=== PATIENT | male | born 1935 | race Caucasian/White ===

== ENCOUNTER 2018-01-01 18:41 | Inpatient (IN) | payer MEDICARE, OTHER ==
[~2018-01-01] VITALS: Ht 182.9 cm; Wt 73.3 kg
[~2018-01-01 18:41] MED LIST: ASPI-274 PO; ATOR20TA22 PO; AZIT-18 PO; CARB-91 PO; CEF300 PO; FLU20 PO; GLUC100026 PO; HYDR-389 PO; IBU200 PO; IBUP100T54 PO; METO25TA23 PO; MOX400 PO; MULT1CAP41 PO; OMEP-137 PO; VANC250C11 PO; WARF10TA34 PO; WARF5TAB23 PO; WARF7.5T13 PO; WARF7.5T26 PO
--- NOTE | 2018-01-01 18:51 | ER Report ---
History and Physical Time Seen By MD: 18:51 HPI/ROS CHIEF COMPLAINT: Vomiting HISTORY OF PRESENT ILLNESS: 82-year-old male patient presents to emergency room with complaint of vomiting. Patient's unable to keep anything down since Tuesday. He states that he did eat some Jell-O this afternoon prior to coming over. Is also had some ice chips which they'll keep down. I did start an IV on him and have given him a liter bolus of fluid 2. They state they noted that he had low SPO2 this afternoon, 78%. They decided to send him to the emergency room for further evaluation. Patient does live in a long-term in [facility]. Patient denies having any fevers, chills. Denies having any diarrhea. He has not taken any medication for this. He denies having any shortness of breath. He denies having any cough. Patient does have a history of MS. REVIEW OF SYSTEMS: Respiratory: As noted above Cardiovascular: No chest pain, no palpitations. Gastrointestinal: As noted above Musculoskeletal: No back pain. Allergies: Coded Allergies: piperacillin (Verified Allergy, Severe, rash with blisters on back, stomach, and arms, 01/01/18) tazobactam (Verified Allergy, Severe, rash with blisters on back, stomach , and arms, 01/01/18) metronidazole (Unverified Allergy, Intermediate, RASH, 01/01/18) Itching, patient turns bright red all over body lactase (Unverified Allergy, Mild, DIARRHEA, 01/01/18) hydrocodone (Verified Allergy, Unknown, 01/01/18) oxycodone (Verified Allergy, Unknown, 01/01/18) milk (Verified Adverse Reaction, Intermediate, DIARRHEA, 01/01/18) Home Meds Active Scripts Vancomycin Hcl (VANCOCIN HCL) 250 Mg/5 Ml Soln, 500 MG PO Q6H@03,09,15,21, #1 TAB Prov:JULIA PATEL DO 01/27/15 Reported Medications Carbamazepine (CARBAMAZEPINE) 200 Mg Cpmp.12hr, 200 MG PO BID 01/01/18 Lactobacillus Acidophilus (ACIDOPHILUS) 1 Each Capsule, 1 EACH PO QDAY, CAPSULE 01/01/18 Metoprolol Succinate (METOPROLOL SUCCINATE) 25 Mg Tab.er.24h, 1 TAB PO DAILY, # 30 01/13/15 Carbamazepine (CARBAMAZEPINE) 200 Mg Tablet, 200 MG PO BID 06/25/14 Multivitamins W-Minerals (Multivitamin) 1 Cap Capsule, 1 CAP PO DAILY 05/17/07 Atorvastatin Calcium (Lipitor) 20 Mg Tablet, 10 MG PO QHS, #0 0 Refills 05/17/07 Fluoxetine Hcl (Prozac) 20 Mg Cap, 40 MG PO DAILY 05/17/07 Past Medical/Surgical History Patient has a past medical history of MS, A. fib, hypertension, hyperlipidemia, reflux, osteomyelitis, left hip fracture, atrial fibrillation. Patient has a surgical history of inguinal hernia repair 2, Achilles tendon rupture repair, left rotator cuff, tonsillectomy. Reviewed Nurses Notes: Yes Hx Smoking: No Smoking Status: Never Smoker Exposure to Second Hand Smoke?: No Hx Substance Use Disorder: No Hx Alcohol Use: No Constitutional Vital Sign - Last 24 Hours 01/01/18 01/01/18 01/01/18 01/01/18 18:49 18:51 18:56 19:10 Temp 98.5 Pulse 95 91 Resp 18 B/P (MAP) 132/73 (92) 132/73 Pulse Ox 77 93 O2 Delivery Room Air O2 Flow Rate 3.5 01/01/18 01/01/18 01/01/18 01/01/18 19:11 19:26 19:56 20:11 Pulse 84 85 86 86 Pulse Ox 92 94 96 94 01/01/18 01/01/18 01/01/18 20:16 20:31 20:46 Pulse 89 84 87 Pulse Ox 94 94 94 Physical Exam General Appearance: The patient is alert, has no immediate need for airway protection and no current signs of toxicity. Patient had an SPO2 of 77% on admission to the emergency room. Respiratory: Chest is non tender, lungs are diminished to auscultation. Cardiac: regular rate and rhythm Gastrointestinal: Abdomen is soft and non tender, no masses, bowel sounds normal. Musculoskeletal: Neck: Neck is supple and non tender. Extremities have full range of motion and are non tender. Skin: No rashes or lesions. DIFFERENTIAL DIAGNOSIS: After history and physical exam differential diagnosis was considered for shortness of breath including but not limited to pulmonary infectious process, COPD, asthma, pulmonary embolus and congestive heart failure. Included differential is fluid overload, small bowel obstruction. Medical Decision Making Data Points Result Diagram: 01/01/18191401/01/181914 Laboratory Hematology Test 01/01/18 19:15 01/01/18 20:35 Red Blood Count 4.87 M/uL (4.00-5.60) Mean Corpuscular Volume 98.2 fL (80.0-96.0) Mean Corpuscular Hemoglobin 32.7 pg (26.0-33.0) Mean Corpuscular Hemoglobin Concent 33.3 g/dL (32.0-36.0) Red Cell Distribution Width 13.9 % (11.5-14.5) Mean Platelet Volume 7.5 fL (7.2-11.1) Neutrophils (%) (Auto) 93.3 % (39.4-72.5) Lymphocytes (%) (Auto) 3.4 % (17.6-49.6) Monocytes (%) (Auto) 2.9 % (4.1-12.4) Eosinophils (%) (Auto) 0.1 % (0.4-6.7) Basophils (%) (Auto) 0.3 % (0.3-1.4) Nucleated RBC Relative Count (auto) 0.0 /100WBC Neutrophils # (Auto) 19.1 K/uL (2.0-7.4) Lymphocytes # (Auto) 0.7 K/uL (1.3-3.6) Monocytes # (Auto) 0.6 K/uL (0.3-1.0) Eosinophils # (Auto) 0.0 K/uL (0.0-0.5) Basophils # (Auto) 0.1 K/uL (0.0-0.1) Nucleated RBC Absolute Count (auto) 0.01 K/uL Peripheral Blood Smear Yes Y/N Prothrombin Time 52.5 seconds (12.0-14.4) Prothromb Time International Ratio 5.47 D-Dimer Quantitative (PE/DVT) < 0.27 ug/ml (0-0.50) Sodium Level 147 mmol/L (137-145) Potassium Level 4.4 mmol/L (3.5-5.0) Chloride Level 103 mmol/L (98-107) Carbon Dioxide Level 30 mmol/L (22-30) Blood Urea Nitrogen 36 mg/dl (9-21) Creatinine 1.20 mg/dl (0.66-1.25) Glomerular Filtration Rate Calc 58.0 Random Glucose 120 mg/dl (75-110) Calcium Level 10.2 mg/dl (8.4-10.2) Total Bilirubin 0.6 mg/dl (0.2-1.3) Aspartate Amino Transf (AST/SGOT) 25 U/L (0-35) Alanine Aminotransferase (ALT/SGPT) 39 U/L (0-56) Alkaline Phosphatase 108 U/L (0-126) Troponin I < 0.012 ng/ml B-Type Natriuretic Peptide 65 pg/ml (0-100) Total Protein 8.3 gm/dl (6.3-8.2) Albumin 4.2 g/dl (3.5-5.0) Influenza Virus Type A (PCR) Negative (NEGATIVE) Influenza Virus Type B (PCR) Negative (NEGATIVE) Lactate 1.2 mmol/L (0.7-2.1) Chemistry Test 01/01/18 19:15 01/01/18 20:35 White Blood Count 20.4 k/uL (4.5-11.0) Red Blood Count 4.87 M/uL (4.00-5.60) Hemoglobin 15.9 g/dL (14.0-18.0) Hematocrit 47.8 % (42.0-52.0) Mean Corpuscular Volume 98.2 fL (80.0-96.0) Mean Corpuscular Hemoglobin 32.7 pg (26.0-33.0) Mean Corpuscular Hemoglobin Concent 33.3 g/dL (32.0-36.0) Red Cell Distribution Width 13.9 % (11.5-14.5) Platelet Count 301 K/uL (150-450) Mean Platelet Volume 7.5 fL (7.2-11.1) Neutrophils (%) (Auto) 93.3 % (39.4-72.5) Lymphocytes (%) (Auto) 3.4 % (17.6-49.6) Monocytes (%) (Auto) 2.9 % (4.1-12.4) Eosinophils (%) (Auto) 0.1 % (0.4-6.7) Basophils (%) (Auto) 0.3 % (0.3-1.4) Nucleated RBC Relative Count (auto) 0.0 /100WBC Neutrophils # (Auto) 19.1 K/uL (2.0-7.4) Lymphocytes # (Auto) 0.7 K/uL (1.3-3.6) Monocytes # (Auto) 0.6 K/uL (0.3-1.0) Eosinophils # (Auto) 0.0 K/uL (0.0-0.5) Basophils # (Auto) 0.1 K/uL (0.0-0.1) Nucleated RBC Absolute Count (auto) 0.01 K/uL Peripheral Blood Smear Yes Y/N Prothrombin Time 52.5 seconds (12.0-14.4) Prothromb Time International Ratio 5.47 D-Dimer Quantitative (PE/DVT) < 0.27 ug/ml (0-0.50) Glomerular Filtration Rate Calc 58.0 Calcium Level 10.2 mg/dl (8.4-10.2) Total Bilirubin 0.6 mg/dl (0.2-1.3) Aspartate Amino Transf (AST/SGOT) 25 U/L (0-35) Alanine Aminotransferase (ALT/SGPT) 39 U/L (0-56) Alkaline Phosphatase 108 U/L (0-126) Troponin I < 0.012 ng/ml B-Type Natriuretic Peptide 65 pg/ml (0-100) Total Protein 8.3 gm/dl (6.3-8.2) Albumin 4.2 g/dl (3.5-5.0) Influenza Virus Type A (PCR) Negative (NEGATIVE) Influenza Virus Type B (PCR) Negative (NEGATIVE) Lactate 1.2 mmol/L (0.7-2.1) Coagulation Test 01/01/18 19:15 Prothrombin Time 52.5 seconds Prothromb Time International Ratio 5.47 D-Dimer Quantitative (PE/DVT) < 0.27 ug/ml EKG/Imaging EKG Interpretation 12 lead EKG: Rhythm: normal sinus rhythm with a ventricular rate of 84 bpm Harlan: normal QRS: normal ST segments: normal Imaging EXAMINATION: Chest 2 Views HISTORY: Respiratory distress. COMPARISON: 01/17/2015. FINDINGS: There is chronic parenchymal scarring in the left lung base, similar to the prior study of 2014. There does however appear to be increased parenchymal opacity in the lower left lung which may represent a superimposed pneumonia. The right lung is clear. No pleural effusion or pneumothorax. Normal heart size and pulmonary vascularity. No acute osseous findings in the chest. IMPRESSION: 1. Chronic parenchymal scarring in the left lung base, with increased parenchymal opacity which could represent a superimposed pneumonia. 2. The right lung is clear. Report Dictated By: Chuy Núñez MD at 01/01/2018 8:09 PM Report E-Signed By: Chuy Núñez MD at 01/01/2018 8:16 PM ED Course/Re-evaluation ED Course Patient was admitted to exam room, history and physical were obtained. Differential diagnoses were considered. On examination patient had a low SPO2 of 70% on room air. Patient was placed on 3 L of oxygen was able to maintain saturations in the 90s. Patient did have diminished lung sounds throughout. A CBC, CMP, chest x-ray, blood cultures, lactate were done. Patient had a lactate of 1.2, a white count of 20,000, left shift. X-ray shows a thickening in the left lower lobe, consistent with a superimposed pneumonia. With the labs and the elevated white count with patient needs to be admitted here for IV antibiotics. I discussed with the family who verbalized agreement. I discussed this with Dr. Workman, hospitalist, who agreed to accept the patient for admission. We will go ahead and admit the patient for IV antibiotics and IV rehydration related to bronchitis, hypoxia. Decision to Disposition Date: Jan 01, 2018 Decision to Disposition Time: 20:35 Depart Departure Latest Vital Signs Vital Signs Date Time Temp Pulse Resp B/P (MAP) Pulse Ox O2 Delivery O2 Flow Rate FiO2 01/01/18 20:46 87 94 01/01/18 19:10 3.5 01/01/18 18:51 98.5 18 132/73 Room Air Impression: Primary Impression: Bronchitis Additional Impressions: Leukocytosis Hypoxia Condition: Condition Unchanged Disposition: Admitted from ER Referrals: SHEILA DAVIS MD (PCP) Problem Qualifiers Additional Impressions: Leukocytosis Leukocytosis type: unspecified Qualified Codes: D72.829 - Elevated white blood cell count, unspecified ELENA JEFFREY SOFTWARE PRODUCT SPECIALIST Jan 01, 2018 18:51
[2018-01-01] MEDS ORDERED: NS(*) 0.9% 500 ML BAG 500 ML IV ONE (18:59)
[2018-01-01 19:29] LABS: PLATELET COUNT, AUTOMATED 301 K/uL (150-450)
[2018-01-01] MEDS ORDERED: LACT1CAP64 PO (19:38)
[2018-01-01] MEDS ORDERED: CARB200C2 PO (19:40)
[2018-01-01 19:53] LABS: INR 5.47
--- NOTE | 2018-01-01 20:21 | RADIOLOGY IMAGING REPORT ---
FACILITY: [facility] - [place] PATIENT NAME: Mitesh Gambino : 1935 MR: [id number] V: [id number] EXAM DATE: ORDERING PHYSICIAN: ELENA JEFFREY TECHNOLOGIST: Location: [facility] [place] Patient: Mitesh Gambino : 1935 Visit/Account:[id number] Date of Sevice: 01/01/2018 EXAMINATION: Chest 2 Views HISTORY: Respiratory distress. COMPARISON: 01/17/2015. FINDINGS: There is chronic parenchymal scarring in the left lung base, similar to the prior study of 2014. Ther e does however appear to be increased parenchymal opacity in the lower left lung which may represent a superimposed pneumonia. The right lung is clear. No pleural effusion or pneumothorax. Normal heart size and pulmonary vascularity. No acute osseous findings in the chest. IMPRESSION: 1. Chronic parenchymal scarring in the left lung base, with increased parenchymal opacity which could represent a superimposed pneumonia. 2. The right lung is clear. Report Dictated By: Chuy Núñez MD at 01/01/2018 8:09 PM Report E-Signed By: Chuy Núñez MD at 01/01/2018 8:16 PM WSN:[id number]
--- NOTE | 2018-01-01 20:47 | EKG ---
FACILITY: [facility] - [place] PATIENT NAME: JULIA HOROWITZ : [id number] MR: [id number] V: [id number] EXAM DATE: ORDERING PHYSICIAN: ELENA JEFFREY TECHNOLOGIST: KEREN Test Reason : DYSPNEA Blood Pressure : / mmHG Vent. Rate : 084 BPM Atrial Rate : 084 BPM P-R Int : 162 ms QRS Dur : 092 ms QT Int : 394 ms P-R-T Axes : 064 010 061 degrees QTc Int : 465 ms Normal sinus rhythm Normal ECG When compared with ECG of 24-JAN-2015 23:10, Vent. rate has decreased BY 41 BPM Confirmed by ROBERTH GABRIEL ([id number]) on 01/02/2018 5:35:45 AM Referred By: Confirmed By:ROBERTH GABRIEL
[2018-01-01] MEDS ORDERED: ATORVASTATIN 10 MG TAB PO SCH (21:00)
[2018-01-01] MEDS ORDERED: NS 0.45%(*) 1000 ML BAG 1,000 ML IV SCH (21:05)
[2018-01-01] MEDS ORDERED: methylPREDNIS SUCC 125 MG/2ML IVP SCH (21:05)
[2018-01-01] MEDS ORDERED: CARBAMAZEPINE 200 MG TAB.ER.12H PO SCH (21:27)
--- NOTE | 2018-01-01 21:36 | History & Physical ---
History of Present Illness Chief Complaint Vomiting History of Present Illness 82 yr old male with vomiting for approx 24 hours. No diarrhea. No blood noted. Seen in ER this evening and diagnosed with LLL pneumonia for which he really has minimal symptoms. He has a history of pneumonia and pneumothorax and is on O2 at night at 2 L/min. No chills or fever noted. WBC count 20, 000. O2 sats corrected with 3 L/min in ER. Lactate normal. BNP and troponin normal. Has previous history of atrial fib and is on coumadin and B blockers. History Problems: (1) Atrial fibrillation Status: Resolved (2) Pneumothorax on left Status: Resolved (3) MS (multiple sclerosis) Status: Chronic (4) Hyperlipemia Status: Chronic (5) Hip fracture requiring operative repair Status: Resolved (6) Hypoxia Status: Chronic Home Meds Active Scripts Vancomycin Hcl (VANCOCIN HCL) 250 Mg/5 Ml Soln, 500 MG PO Q6H@03,09,15,21, #1 TAB Prov:JULIA PATEL DO 01/27/15 Reported Medications Carbamazepine (CARBAMAZEPINE) 200 Mg Cpmp.12hr, 200 MG PO BID 01/01/18 Lactobacillus Acidophilus (ACIDOPHILUS) 1 Each Capsule, 1 EACH PO QDAY, CAPSULE 01/01/18 Metoprolol Succinate (METOPROLOL SUCCINATE) 25 Mg Tab.er.24h, 1 TAB PO DAILY, # 30 01/13/15 Carbamazepine (CARBAMAZEPINE) 200 Mg Tablet, 200 MG PO BID 06/25/14 Multivitamins W-Minerals (Multivitamin) 1 Cap Capsule, 1 CAP PO DAILY 05/17/07 Atorvastatin Calcium (Lipitor) 20 Mg Tablet, 10 MG PO QHS, #0 0 Refills 05/17/07 Fluoxetine Hcl (Prozac) 20 Mg Cap, 40 MG PO DAILY 05/17/07 Allergies: Coded Allergies: piperacillin (Verified Allergy, Severe, rash with blisters on back, stomach, and arms, 01/01/18) tazobactam (Verified Allergy, Severe, rash with blisters on back, stomach , and arms, 01/01/18) metronidazole (Unverified Allergy, Intermediate, RASH, 01/01/18) Itching, patient turns bright red all over body lactase (Unverified Allergy, Mild, DIARRHEA, 01/01/18) hydrocodone (Verified Allergy, Unknown, 01/01/18) oxycodone (Verified Allergy, Unknown, 01/01/18) milk (Verified Adverse Reaction, Intermediate, DIARRHEA, 01/01/18) Hx Smoking: No Smoking Status: Never Smoker Exposure to Second Hand Smoke?: No Hx Alcohol Use: No Hx Substance Use Disorder: No Review of Systems Constitutional: No Fever, No Chills Neurological: No Syncope, No Confusion, No Slurred Speech Cardiovascular: No Chest Pain, No Palpitations, No Orthostatic Hypotension Respiratory: Cough, No Shortness of Breath Gastrointestinal: Nausea, Vomiting Genitourinary: No Dysuria, No Hematuria, No Urinary Incontinence Musculoskeletal: Pain Psychiatric: Depression, Anxiety Exam Vital Signs Vital Signs Date Time Temp Pulse Resp B/P (MAP) Pulse Ox O2 Delivery O2 Flow Rate FiO2 01/01/18 21:31 88 92 01/01/18 19:10 3.5 01/01/18 18:51 98.5 18 132/73 Room Air General Appearance: Alert, Awake, No Acute Distress Neuro: Other (Weakness is widespread and no localizing findings.) ENT: Normal Cardiovascular: Regular Rate and Rhythm, Other (S1S2 are normal. No murmur, gallops or rubs.) Respiratory: Other (Ronchi left lower chest anterior and posterior. Mild exp wheezing LLL but otherwise good expansion.) GI: Abd Soft and Non-Tender, Other (BS are active. ) : No CVA Tenderness Extremities: Soft and Non Tender, Warm, Pulses, Perfused Psych: Alert & Oriented X3, Appropriate Mood & Affect Medical Decision Making Data Points Result Diagram: 01/01/18191401/01/181914 EKG / Imaging EKG Interpretation Sinus rhythm. No acute changes. Monitor Interpretation: Normal Sinus Rhythm Imaging LLL infiltrate on CXR Pre-Admit Course ED Medications Reviewed Medical Record Review: Yes Assessment and Plan Problems: (1) CAP (community acquired pneumonia) Status: Acute Assessment & Plan: LLL infiltrate on CXR. Will use rocephin 2 gm daily and doxycycline 100 mg bid. Also add xopenex nebs q 6 hours and mucinex 600 mg bid. Will not use azithro due to history of cardiac issues. CXR tomorrow with repeat labs. Will add stress dose steroids mostly due to history of MS. He generally uses steroids for MS flares and should help with resp issues as well. Given his swallowing problems, the resp findings could be due to aspiration but history, labs and LLL location mitigate against aspiration. 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 Hold coumadin. Query if he actually needs coumadin since he is in sinus rhythm and apparently has been for a while. No bleeding at this time so will not reverse with FFP or vit K. (3) Depression Status: Chronic Assessment & Plan: Continue prozac. (4) Atrial fibrillation Status: Resolved Assessment & Plan: Continue metoprolol (5) MS (multiple sclerosis) Status: Chronic Assessment & Plan: Continue current meds. Main issue now is weight loss (20 lbs) due to difficulty swallowing, poor taste and smell which ruins his appetite. Should probably have formal swallowing eval and consideration to G or J tube for nutritional purposes. Briefly discussed this with family. (6) Hyperlipidemia Status: Chronic Assessment & Plan: Continue lipitor. Time Spent on Plan of Care: > 30 min Copies to: SHEILA DAVIS MD Venous Thromboembolism VTE Risk Patient's VTE Risk: Low VTE Diagnostic Test 2 Days Prior to Admit: No Antithrombotics Is Pt On Any Antithrombotics?: Yes Prophylaxis Tx Contraindicated Pharmacological Contraindicati: Medical Contraindication Mechanical Contraindications: Pt at Low Risk for VTE Exam Sepsis Risk: No Definite Risk ADOLPH GABRIEL MD FACP Jan 01, 2018 21:36
[2018-01-01 22:07] VITALS: BP 139/80
[2018-01-01] MEDS: cefTRIAXone(*) 2 GM VIAL 2 GM in NS(*) 0.9% 100 ML ADDVANT BAG 100 ML IVPB SCH (22:49)
[2018-01-01] MEDS: guaiFENesin 600 MG TABCR PO SCH (22:49)
[2018-01-01] MEDS: DOXYCYCLINE HYCL 100 MG TAB PO SCH (22:50)
[2018-01-01] MEDS: LEVALBUTEROL 0.63 MG/3 ML NEB NEB SCH (23:59)
[2018-01-02] MEDS ORDERED: NS(*) 0.9% 250 ML BAG 250 ML in NS(*) 0.9% 250 ML BAG 250 ML IV PRN (00:15)
[2018-01-02 02:22] VITALS: BP 131/77
[2018-01-02] MEDS ORDERED: FLUO-177 PO (02:59)
[2018-01-02] MEDS ORDERED: WARF4TAB46 PO ×2 (02:59)
[2018-01-02] MEDS ORDERED: KETO5DRO13 OP (02:59)
[2018-01-02] MEDS ORDERED: KETO5DRO71 OP (02:59)
[2018-01-02] MEDS ORDERED: ONDA4TAB97 PO (02:59)
[2018-01-02] MEDS ORDERED: TRIA15OI20 TP (02:59)
[2018-01-02] MEDS ORDERED: ACET-1966 PO (02:59)
[2018-01-02] MEDS ORDERED: OMEP-125 PO (02:59)
[2018-01-02] MEDS ORDERED: TRIA15CR40 TP (02:59)
[2018-01-02] MEDS ORDERED: GUAI1TAB (02:59)
[2018-01-02] MEDS ORDERED: GUAI600T57 PO (02:59)
[2018-01-02] MEDS ORDERED: MULT1CAP59 PO (02:59)
[2018-01-02] MEDS ORDERED: POLY17PO25 PO (02:59)
[2018-01-02] MEDS ORDERED: CHOL10005 PO (02:59)
[2018-01-02] MEDS ORDERED: NYST15PO4 TP (02:59)
[2018-01-02] MEDS: LEVALBUTEROL 0.63 MG/3 ML NEB NEB SCH ×4 (05:28→21:05)
[2018-01-02] MEDS ORDERED: POLYETHYLENE GLYCOL 17 GM PKT PO PRN (06:10)
[2018-01-02] MEDS: methylPREDNIS SUCC 125 MG/2ML IVP SCH ×3 (06:16→22:26)
[2018-01-02 06:40] LABS: PLATELET COUNT, AUTOMATED 250 K/uL (150-450)
[2018-01-02 06:59] LABS: INR 5.58
--- NOTE | 2018-01-02 06:59 | RADIOLOGY IMAGING REPORT ---
[place] [facility] [place] NAME: Mitesh Gambino : 1935 MR: [id number] V: [id number] EXAM DATE: ORDERING PHYSICIAN: ADOLPH GABRIEL TECHNOLOGIST: Location: [facility] [place] Patient: Mitesh Gambino : 1935 Visit/Account:[id number] Date of Sevice: 01/02/2018 CHEST SINGLE AP Indication: Left lower lobe pneumonia.. Comparison: Chest radiograph dated January 01, 2018. Findings: Heart size within normal limits. Heterogeneous linear opacities within the left lower lung, not significantly changed. Scattered addit ional chronic interstitial changes. No pneumothorax or pleural effusion. IMPRESSION: 1. No significant change in appearance of the chest. Report Dictated By: Isma Matta MD at 01/02/2018 6:55 AM Report E-Signed By: Isma Matta MD at 01/02/2018 6:57 AM WSN:[id number]
[2018-01-02 08:00] VITALS: BP 139/85
[2018-01-02] MEDS: METOPROLOL SUCC XL 25 MG TABCR PO SCH (08:53)
[2018-01-02] MEDS: guaiFENesin 600 MG TABCR PO SCH ×2 (08:54→20:26)
[2018-01-02] MEDS: DOXYCYCLINE HYCL 100 MG TAB PO SCH ×2 (08:54→20:26)
[2018-01-02] MEDS: FLUoxetine HCL 20 MG CAP PO SCH (08:54)
[2018-01-02] MEDS ORDERED: CARBAMAZEPINE 200 MG TAB.ER.12H PO SCH (09:00)
[2018-01-02] MEDS ORDERED: METOPROLOL SUCC XL 25 MG TABCR PO SCH (09:00)
[2018-01-02] MEDS: NS 0.45%(*) 1000 ML BAG 1,000 ML IV SCH (11:49)
--- NOTE | 2018-01-02 11:50 | Hospitalist Progress Note ---
Subjective Progress Notes Subjective He reports "no better". No fevers. He is eating very little "it doesn't taste anymore". Physical Exam Vital Signs Date Time Temp Pulse Resp B/P (MAP) Pulse Ox O2 Delivery O2 Flow Rate FiO2 01/02/18 08:09 80 01/02/18 08:00 98.3 16 139/85 (103) 95 Nasal Cannula 2.5 Intake and Output 01/03/18 07:00 Intake Total 100 ml Output Total 125 ml Balance -25 ml Intake Oral 100 ml Output Urine Total 125 ml General Appearance: Alert, Awake, Other (very flat affect) Neuro: Other (motor exam with generalized weakness/no rigidity noted) ENT: Oropharynx Clear Cardiovascular: Regular Rate and Rhythm Respiratory: Other (scattered rhonchi with few rales at left base) Chest: No Tenderness GI: Soft and Non-Tender Extremities: Warm, Perfused Result Diagram: 01/02/1862701/02/18627 Monitor Interpretation: Normal Sinus Rhythm Assessment and Plan Problems: (1) CAP (community acquired pneumonia) Status: Acute Assessment & Plan: Pneumonia with LLL infiltrate on CXR. He is currently on IV Rocephin 2 gm daily and doxycycline 100 mg bid. Xopenex nebs q 6 hours and Mucinex 600 mg bid as well. We also added stress dose steroids. He has used steroids for MS flares in past. Should help with respiratory issues as well. Given his swallowing problems, the respiratory findings could be due to aspiration. Will have speech/swallowing see. He is on modified diet as well. 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 Hold Coumadin for now. No bleeding at this time so will not acutely reverse. (3) Depression Status: Chronic Assessment & Plan: Continue prozac. (4) Atrial fibrillation Status: Resolved Assessment & Plan: Continue metoprolol. EKG on admission shows sinus rhythm. He does appear to be staying in sinus rhythm on exam as well. (5) MS (multiple sclerosis) Status: Chronic Assessment & Plan: Main issue now is weight loss (20 lbs) due to difficulty swallowing, poor taste and smell which ruins his appetite. Will have speech/ swallowing therapy see for formal swallowing evaluation. Question if he might be a candidate for feeding tube placement. (6) Hyperlipidemia Status: Chronic Assessment & Plan: Continue Lipitor. Exam Sepsis Risk: No Definite Risk RAINE LESLIE MD Jan 02, 2018 11:50
[2018-01-02 12:19] VITALS: Ht 182.9 cm; Wt 73.3 kg
[2018-01-02 14:44] VITALS: BP 135/75
[2018-01-02 18:50] VITALS: BP 126/76
[2018-01-02] MEDS: cefTRIAXone(*) 2 GM VIAL 2 GM in NS(*) 0.9% 100 ML ADDVANT BAG 100 ML IVPB SCH (22:26)
[2018-01-03 04:08] VITALS: BP 118/74
[2018-01-03] MEDS: LEVALBUTEROL 0.63 MG/3 ML NEB NEB SCH ×4 (05:15→21:04)
[2018-01-03] MEDS: methylPREDNIS SUCC 125 MG/2ML IVP SCH ×3 (06:16→23:30)
[2018-01-03 06:24] LABS: PLATELET COUNT, AUTOMATED 222 K/uL (150-450)
[2018-01-03 06:31] LABS: INR 3.73
[2018-01-03 07:24] VITALS: BP 128/75
[2018-01-03] MEDS: NS 0.45%(*) 1000 ML BAG 1,000 ML IV SCH (07:26)
[2018-01-03] MEDS: DOXYCYCLINE HYCL 100 MG TAB PO SCH ×2 (08:27→20:52)
[2018-01-03] MEDS: guaiFENesin 600 MG TABCR PO SCH ×2 (08:28→20:51)
[2018-01-03] MEDS: METOPROLOL SUCC XL 25 MG TABCR PO SCH (08:28)
[2018-01-03] MEDS: FLUoxetine HCL 20 MG CAP PO SCH (08:28)
[2018-01-03 14:09] VITALS: BP 117/69
--- NOTE | 2018-01-03 14:42 | Hospitalist Progress Note ---
Subjective Progress Notes Subjective The patient denies new complaint. Would like to know more about feeding tube placement. Physical Exam Vital Signs Date Time Temp Pulse Resp B/P (MAP) Pulse Ox O2 Delivery O2 Flow Rate FiO2 01/03/18 14:11 73 01/03/18 14:09 98.2 16 117/69 (85) 91 Room Air 01/03/18 11:07 1.0 Intake and Output 01/04/18 07:00 Intake Total 1954 ml Output Total 100 ml Balance 1854 ml Intake Oral 50 ml IV Total 1904 ml Output Urine Total 100 ml General Appearance: Alert, Awake, No Acute Distress Eyes: PERRLA Cardiovascular: Regular Rate and Rhythm Respiratory: Other (Rhonchi L lung field. R lung clear.) GI: Soft and Non-Tender Extremities: Warm, Perfused Psych: Appropriate Mood & Affect Result Diagram: 01/03/18 0604 01/03/18 0604 Item Value Date Time Prothromb Time International Ratio 5.47 *H 01/01/18 1915 Prothromb Time International Ratio 5.58 *H 01/02/18 0628 Prothromb Time International Ratio 3.73 01/03/18 0604 Calcium Level 9.2 mg/dl 01/03/18 0604 Total Bilirubin 0.4 mg/dl 01/03/18 0604 Aspartate Amino Transf (AST/SGOT) 20 U/L 01/03/18 0604 Alanine Aminotransferase (ALT/SGPT) 24 U/L 01/03/18 0604 Alkaline Phosphatase 81 U/L 01/03/18 0604 Total Protein 6.3 gm/dl 01/03/18 0604 Albumin 3.3 g/dl L 01/03/18 0604 Monitor Interpretation: Normal Sinus Rhythm Assessment and Plan Problems: (1) CAP (community acquired pneumonia) Status: Acute Assessment & Plan: Pneumonia with LLL infiltrate on CXR. He is currently on IV Rocephin 2 gm daily and doxycycline 100 mg bid. Xopenex nebs q 6 hours and Mucinex 600 mg bid as well. We also added stress dose steroids. He has used steroids for MS flares in past. Should help with respiratory issues as well. Given his swallowing problems, the respiratory findings could be due to aspiration. Speech/swallowing evaluation in progress. He is on modified diet as well. 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 Hold Coumadin for now. No bleeding at this time so will not acutely reverse. (3) Depression Status: Chronic Assessment & Plan: Continue prozac. (4) Atrial fibrillation Status: Resolved Assessment & Plan: Continue metoprolol. EKG on admission shows sinus rhythm. He does appear to be staying in sinus rhythm on exam as well. (5) MS (multiple sclerosis) Status: Chronic Assessment & Plan: Main issue now is weight loss (20 lbs) due to difficulty swallowing, poor taste and smell which ruins his appetite. Will have speech/ swallowing therapy see for formal swallowing evaluation. Question if he might be a candidate for feeding tube placement. Discussed with the patient today and he will consider it. (6) Hyperlipidemia Status: Chronic Assessment & Plan: Continue Lipitor. Time Spent on Plan of Care: < 30 min Exam Sepsis Risk: No Definite Risk BETO LESLIE MD Jan 03, 2018 14:42
--- NOTE | 2018-01-03 16:04 | Medical Nutrition Therapy ---
Nutrition Anthropometrics Height (Inches): 72.00 Height (Calculated Centimeters: [phone] Weight (Pounds): 156 Weight (Calculated Kilograms): 70.931 BMI Calculated: 21.16 Lake Nutrition Score: Probably Inadequate Lake Nutrition Risk Score: 15 Dietary Referral Nutrition Risk Factors: Unplanned Loss >10lbs Nutrition Risk Comment: Physical Findings Physical Appearance: WNR Skin Appearance Skin Appearance: Edema Edema Location Modifier: Edema Location: Type of Edema: Degree of Edema: Gastrointestinal Symptoms GI Symtoms: Appetite Changes Tube Present: Bowel Sounds: Recent Bowel Pattern: Stool Characteristics: Nutrition/Food History Decreased Appetite Nutritional Diagnosis Nutritional Risk Acuity 2: Swallowing Problem Nutritional Risk Acuity 3: Fair Appetite Past Medical History: MS, dysphagia per SPL 06/25/2014 Nutritional Acuity: 2-Moderate Nutrition Diagnosis: Swallowing Difficulties Nutrition Etiology: Physiological Causes Nutrition Problem/Etiology/Sym: Swallowing Difficulty related to motor causes, e.g., neurological or muscular disorders multiple sclerosis AEB need for Mech Soft diet Energy Requirement: 2200 Protein Requirement: 71 Fluid Requirement: 2200 Diet Type: Soft Mechanical Nutrition Intervention: Cont diet as ordered Do Not Serve Any of the Follow: Broccoli, Brussel Sprouts, Spinach, Baron Lettuce, Cranberry Juice Nutrition Monitoring & Eval Nutrition Goals: Eat 75-100% Meal RD Patient Assessment Time: [address] Assessment Type: RD Assessment Patient Nutrition Acuity: 2-Moderate Follow Up Date: Jan 05, 2018 Nutritional Comment: Pt admitted for Pneumonia. Complaints of vomiting before admission. Also concern of swallowing difficulty d/t MS; MD to order swallowing eval and consideration to G or J tube for nutrients. Alb 4.2, High BUN. Within normal wt range with BMI of 21.2. Receiving Soft mechanical diet and consumed 50% of first meal in facility. GENIE MCMAHON Jan 03, 2018 16:04
[2018-01-03 16:56] VITALS: BP 131/77
--- NOTE | 2018-01-03 17:41 | SLP BEDSIDE SWALLOW EVALUATION ---
SPEECH THERAPY CLINICAL SWALLOW EVALUATION Patient: Mitesh Gambino : 35 Clinician: Aye Lea M.A., CCC-TIP STRETCHER Evaluation Date: 01/03/18 BACKGROUND The patient is an 82 year-old male who was admitted to [facility] on 01/01/18 following 24 hours of vomiting. Patient was diagnosed with LLL pneumonia though he had minimal symptoms. He has history of dysphagia and has decreased appetite with poor smell and taste. He has lost 20 pounds. Patient reports that he has frequent coughing with eating and drinking as well as frequent vomiting during and after intake. Past medical history includes MS, a-fib, hyperlipidemia, hypoxia, bilateral inguinal hernia repair, depression, pneumonia and pneumothorax. PREVIOUS LEVEL OF FUNCTION: Primary Medical Diagnosis: Pneumonia Prior Level of Function: Resides at detention in [place]. Prior Diet texture: Mechanical soft with nectar thick liquids. Patient reports he has been allowed to drink un-thickened soda. Takes pills one at a time with nectar thick liquid. COGNITION/COMMUNICATION LOC: Alert and cooperative Follows Instructions: Yes, 1-step ([facility]) Cognitive- Linguistic deficits impact swallow function/safety, or response to therapy: No VOICE/SPEECH -Aphonic/Dysphonic: Mild rough vocal quality with mildly decreased intensity -Nasal emission: No -Hypernasality: No -Wet Vocal Quality: Intermittent ORAL/PHYSICAL EXAM Oral mechanism exam significant for generalized weakness, mildly decreased labial ROM, moderately decreased lingual ROM with protrusion, mildly decreased lingual ROM in all other dimensions, moderately decreased lingual coordination. Laryngeal elevation appeared WFL upon palpation. Dentition adequate. Palatal elevation WNL. ORAL PHASE Oral phase of swallow was WFL for nectar thick liquid and puree. Patient had no labial spillage. Adequate bolus formation, posterior bolus propulsion and oral clearance. Solid foods not trialed at this time. PHARYNGEAL PHASE Patient consumed nectar thick liquid via teaspoon and cup rim. Demonstrated mild wet vocal quality after approximately 50% of trials. Trialed puree ( applesauce) with wet vocal quality after 30% of trials. Attempted chin tuck maneuver which did not appear to reduce signs of aspiration with either nectar thick liquid or puree. Patient consistently required 2-3 swallows per bolus, suggesting poor pharyngeal clearance. Patient endorsed sensation of food sticking in his throat. Following applesauce trials, patient began gagging, vomiting and sneezing. PO trials were discontinued. ESOPHAGEAL PHASE Patient demonstrated gagging and vomiting after PO trials which may be indicative of esophageal involvement. ASSESSMENT SUMMARY: Patient demonstrates suspected moderate-severe oropharyngeal dysphagia as evidenced by signs of aspiration on 30-50% of trials with nectar thick liquid and puree. Chin tuck did not appear to be effective at reducing aspiration during clinical evaluation but may benefit from further assessment during MBSS. Patient demonstrated gagging, vomiting and sneezing after trials nectar thick liquid and puree, thus PO trials had to be ended prematurely. Patient states that this is not unusual for him. It is strongly recommended that patient consider alternate means of nutrition and hydration due to high risk of aspiration and significant weight loss. Patient stated that if he does get a feeding tube, he has no desire to eat any food by mouth. He would, however, like to be able to continue to drink liquids. For this reason, patient is recommended to participate in modified barium swallow study (MBSS) to determine nature and degree of dysphagia and whether he is able to consume any liquids safely. RECOMMENDATIONS Patient was recommended to consume puree foods until completion of MBSS due to severity of swallow. He declined this recommendation and voiced understanding of risk of choking and aspiration. He will continue mechanical soft diet texture at this time. Patient also declined recommendation to take pills crushed in puree. He may continue to drink nectar thick liquids until swallow is further evaluated during MBSS. 1. Complete MBSS to further evaluate oropharyngeal swallow function. 2. Consider further evaluation of esophageal phase of swallow. 3. Mechanical soft diet texture (per patient preference) and nectar thick liquid at this time. 4. Oral care at least 2x per day. 5. Sit upright 90 degrees for all eating and drinking and at least 30 minutes after meals/meds. 6. Supervision with meals/snacks. PLAN OF CARE Frequency and Duration: Follow-up visit to include MBSS. Frequency and duration to be established pending MBSS results. Short Term Goals 1. The patient will participate in MBSS to further evaluate oropharyngeal swallow function. Further goals to be established upon completion of MBSS. Fpc Goals 1. Patient will maintain adequate nutrition and hydration without aspiration or aspiration related medical complications. 2. Patient and will verbalize and/or demonstrate understanding of dysphagia and aspiration risks in order to inform decision making. Patient Goals: To be able get enough to eat and drink. Rehabilitation Prognosis: Fair Barriers to Discharge: Severity of dysphagia, inability to maintain adequate PO intake at this time. Thank you for this referral. Please call [phone] (inpatient rehab) or [phone] (outpatient rehab) to contact the TIP STRETCHER. Aye Lea M.A., [facility]-TIP STRETCHER Speech-Language Pathologist . [*] MTDD
[2018-01-03 19:57] VITALS: BP 119/63
[2018-01-03] MEDS: cefTRIAXone(*) 2 GM VIAL 2 GM in NS(*) 0.9% 100 ML ADDVANT BAG 100 ML IVPB SCH (23:31)
[2018-01-03 23:36] VITALS: BP 119/72
[2018-01-04] VITALS (7 sets, daily range): BP systolic 112–128; BP diastolic 70–77
[2018-01-04] MEDS: NS 0.45%(*) 1000 ML BAG 1,000 ML IV SCH ×2 (03:35→22:59)
[2018-01-04] MEDS: LEVALBUTEROL 0.63 MG/3 ML NEB NEB SCH ×4 (05:47→21:09)
[2018-01-04 06:09] LABS: PLATELET COUNT, AUTOMATED 220 K/uL (150-450)
[2018-01-04 06:18] LABS: INR 2.9
[2018-01-04] MEDS: methylPREDNIS SUCC 125 MG/2ML IVP SCH ×3 (07:15→23:20)
[2018-01-04] MEDS ORDERED: BARIUM SULFATE 148 GM POWDER ONE (11:01)
[2018-01-04] MEDS ORDERED: BARIUM SULFATE 240 ML ORAL SUS (NECTAR) ONE (11:01)
--- NOTE | 2018-01-04 11:49 | Hospitalist Progress Note ---
Subjective Progress Notes Subjective This patient was admitted for pneumonia. He had no acute events overnight. Patient Complains of: Cardiovascular: No: Chest Pain Respiratory: No: Shortness of Breath Physical Exam Vital Signs Date Time Temp Pulse Resp B/P (MAP) Pulse Ox O2 Delivery O2 Flow Rate FiO2 01/04/18 11:10 73 16 01/04/18 11:00 95 Nasal Cannula 3.0 01/04/18 07:11 97.7 118/75 (89) Cardiovascular: Regular Rate and Rhythm Respiratory: Clear to Auscultation Extremities: No Edema Integumentary: No Cyanosis Result Diagram: 01/04/18 0530 01/04/18 0530 Item Value Date Time Prothromb Time International Ratio 2.90 01/04/18 0530 Item Value Date Time Blood Culture - Preliminary Resulted 01/01/182034 Blood NO GROWTH AFTER 3 DAYS, REINCUBATED Blood Culture - Preliminary Resulted 01/01/181914 Blood NO GROWTH AFTER 3 DAYS, REINCUBATED Monitor Interpretation: Normal Sinus Rhythm Assessment and Plan Problems: (1) CAP (community acquired pneumonia) Status: Acute Assessment & Plan: His chest x-ray has shown increased opacity in the left lung. He has been on empiric treatment with ceftriaxone. His cultures have been negative. 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 We restarted the warfarin today. (3) Atrial fibrillation Status: Resolved Assessment & Plan: He is on chronic treatment with metoprolol and warfarin. (4) MS (multiple sclerosis) Status: Chronic (5) Weight loss Assessment & Plan: It is reported that he has had 20lbs weight loss and has no appetite. He is having a swallow evaluation today, but will likely require feeding tube placement. (6) Hyperlipidemia Status: Chronic Assessment & Plan: He is on chronic treatment with Lipitor. (7) Depression Status: Chronic Assessment & Plan: Continue prozac. Exam Sepsis Risk: No Definite Risk JULIA PATEL DO Jan 04, 2018 11:49
[2018-01-04] MEDS: FLUoxetine HCL 20 MG CAP PO SCH (12:00)
[2018-01-04] MEDS: DOXYCYCLINE HYCL 100 MG TAB PO SCH ×2 (12:01→20:23)
[2018-01-04] MEDS: guaiFENesin 600 MG TABCR PO SCH ×2 (12:01→20:23)
[2018-01-04] MEDS: METOPROLOL SUCC XL 25 MG TABCR PO SCH (12:01)
--- NOTE | 2018-01-04 12:41 | SLP MODIFIED BARIUM SWALLOW ---
Speech Language Pathology MBSS Evaluation Report Patient Name: Mitesh Gambino Date of Evaluation: 01-04-18 Patient : 1935, 82yr Clinician: Guera Galvan M.S., CCC-CIDER MAKER BACKGROUND The patient is an 82 year old male with diagnosis of MS. A clinical swallow study performed by indicated the need for instrumental evaluation of swallow for this patient due to high risk of aspiration. Oxygen Supplementation: Yes. Nasal Cannula. 3 Liters. Level of Alertness: WNL Cognitive/Linguistic: follows one step commands. Orientation: x3: person, place, time Voice: WNL MBSS In conjunction with radiology, lateral view with trials of the following consistencies: thin barium liquid (carbonated), nectar thick barium liquid, honey thick barium liquid, barium marked pureed, and mechanical soft foods. A 1/2 barium pill was also trialed. ORAL STAGE Moderate dysphagia. Reduced posterior lingual function/retraction resulting in poor bolus control entering the oropharynx and pooling in epiglottic vallecula Multiple swallows clear the majority of material but some remains and increases risk of aspiration. Multiple swallows must be cued as pt is not aware of stasis. Multiple swallows appears to increase swallow mechanism fatigue. PHARYNGEAL STAGE Regular Noncarbonated Thin Liquid: regular thin not trialed d/t severity of dysphagia with nectar liquid. . Effervescent Thin Liquids: Score of 2 on Penetration/Aspiration Scale*: Material enters the airway, remains above the vocal folds and is ejected from the airway. This was trialed with approximately 1tsp bolus size and chin tuck [place] Thick Liquids: The patient consumed a bolus of approximately 1tbs. Approximately 1/2 of the bolus entered the airway resulting in an extended and severe coughing. Smaller bolus, approx 1tsb, was trialed with improved results as follows: Score of 3 on Penetration/Aspiration Scale*: Material enters the airway, remains above the vocal folds, and is not ejected from the airway. Moderate residuals in epilglottic vallecula and pyriform sinus partially clear with multiple cued swallow Honey Thick Liquids: Score of 3 on Penetration/Aspiration Scale*: Material enters the airway, remains above the vocal folds, and is not ejected from the airway. Moderate residuals in epilglottic vallecula and pyriform sinus partially clear with multiple cued swallows Pureed Food: Mild dysphagia. Score of 3 on Penetration/Aspiration Scale*: Material enters the airway, remains above the vocal folds, and is not ejected from the airway. Moderate residuals in epilglottic vallecula and pyriform sinus partially clear with multiple cued swallows Mechanical Soft Foods: As above. Regular Food Consistency: not trialed d/t severity of prior trials. ESOPHAGEAL STAGE not witnessed BARIUM PILL: Pill attempted with purees and then carbonated thin liquids. Patient was not successful in clearing pill from anterior tongue. Multiple, consecutive swallows of thin liquids and purees in an attempt to clear the pill result in increased risk of aspiration and were stopped. The patient ultimately spit out the pill. SUMMARY Aspiration Risk: High. Aspiration witnessed. Severe pharyngeal dysphagia. Penetration and immediate aspiration witnessed with nectar liquids. Though this improved with smaller bolus, risk of aspiration remains high with nectar and honey liquids as well as pureed foods d/ t immediate penetration which is not cleared from the airway. Delayed penetration occurs with mechanical soft swallows d/t pharyngeal stasis which the patient can not successfully clear despite significant effort. Carbonated trials do not result in aspiration, however as a small amount of penetration occurs which partially clears from the airway, increasing risk of delayed aspiration. . Significant pharyngeal stasis with all liquids and foods is present which the patient can only partially clear despite significant effort which ultimately fatigues swallow. Patient does not perform additional swallow without being cued. Compensatory Maneuvers: Chin tuck does improve the swallow. Carbonation improves the swallow, small bites/sips improves the swallow Dysphagia Severity Rating Scale: Moderately severe dysphagia patient aspirates 5% to 10% on one or more consistencies, with potential for aspiration on all consistencies. Cough reflex absent with penetration. Alternative mode of feeding may be required to maintain patient's nutritional needs. RECOMMENDATIONS Consider feeding tube d/t severe pharyngeal dysphagia with penetration/ aspiration and significant weight loss 30lbs since September 2017. Pills: Crush pills Diet Modifications: Carbonated thin liquids ok when patient is not fatigued with small sip and chin tuck. . All other liquids should be nectar thick liquids with small sips and chin tuck . Foods: mechanical soft with small bites Compensatory Maneuvers: Patient cued for one additional swallow following each food bite, small bites/sips, chin tuck Thank you for referring this patient to [facility], Speech- Language Pathology. Please call [phone] to contact the CIDER MAKER. Respectfully, Guera Galvan M.S., CCC-CIDER MAKER Physician Signature Date [facility]ENTER[facility]
[2018-01-04] MEDS ORDERED: WARFARIN SOD 4 MG TAB PO SCH (13:00)
--- NOTE | 2018-01-04 17:21 | RADIOLOGY IMAGING REPORT ---
FACILITY: [facility] PATIENT NAME: Mitesh Gambino : 1935 MR: [id number] V: [id number] EXAM DATE: ORDERING PHYSICIAN: BETO LESLIE TECHNOLOGIST: Location: [facility] Patient: Mitesh Gambino : 1935 Visit/Account:[id number] Date of Sevice: 01/04/2018 Exam type: ESOPH VIDEO SWALLOWING History: Dysphagia Comparison: None. Findings: The modified barium swallow was performed by the speech pathologist. Fluoroscopic assistance was pro vided. Patient received various liquids and pureed and soft solids. The patient aspirated the necta r thick barium on the initial swallowing maneuver. Please see the speech pathologist report for comp lete details. The fluoroscopy dose area product was 324.04 micro-Shoemaker per meter squared IMPRESSION: 1. As above Report Dictated By: Roxann Madrid MD at 01/04/2018 5:14 PM Report E-Signed By: Roxann Madrid MD at 01/04/2018 5:16 PM WSN:[email or web address]
--- NOTE | 2018-01-04 18:23 | General Surgery Consultation ---
History of Present Illness Requesting Physician Dr. Becerra, hospitalist Reason for Consult Inability to eat enough to meet caloric needs Chief Complaint Same as above History of Present Illness 82-year-old gentleman with MS is admitted to the hospitalist service and reports that he is not meeting his nutritional needs. Foods do not taste the same to him and he doesn't have much of an appetite. It has been requested that I place a PEG tube to facilitate supplemental enteral tube feedings. He reports that he hasn't been able to eat anything in 3 months. History Problems: (1) Hyperlipemia Status: Chronic (2) MS (multiple sclerosis) Status: Chronic Home Meds Reported Medications Ondansetron Hcl (ZOFRAN) 4 Mg Tablet, 4 MG PO PRN, TAB 01/02/18 Ketotifen Fumarate (KETOTIFEN FUMARATE) 5 Ml Drops, 5 ML OP BID 01/02/18 Cholecalciferol (Vitamin D3) (VITAMIN D3) 1,000 Unit Tablet, 2000 UNIT PO QDAY, TAB 01/02/18 Triamcinolone Acetonide 0.1% Oint 15 Gm Tube (TRIAMCINOLONE ACETONIDE 0.1% 15 GM TUBE) 15 Gm Oint...g., 15 GM TP PRN Y for RASH, TUBE 01/02/18 Guaifen/Phenyleph/Acetaminophn (Sudafed PE Pressure+Pain+Mucus) 1 Each Tablet, 10 MG Q4H Y for CONGESTION 01/02/18 Omeprazole (OMEPRAZOLE) 20 Mg Capsule.dr, 1 CAP PO QDAY, CAP 01/02/18 Nystatin 100,000 Unit/Gm Top Powder (NYSTATIN 100,000 UNIT/GM TOP POWDER) 15 Gm Powder, 15 GM TP PRN, TUBE 01/02/18 Multivitamin (MULTIVITAMINS) 1 Each Capsule, 1 EACH PO QDAY, CAPSULE 01/02/18 Guaifenesin (MUCINEX) 600 Mg Tablet.er, 600 MG PO BID Y for CONGESTION 01/02/18 Polyethylene Glycol 3350 (MIRALAX) 17 Gm Powd.pack, 17 GM PO QDAY Y for CONSTIPATION, PKT 01/02/18 Fluoxetine Hcl (FLUOXETINE HCL) 20 Mg Capsule, 40 MG PO QDAY, CAPSULE 01/02/18 Warfarin Sodium (COUMADIN) 4 Mg Tablet, 8 MG PO Ijeoma, Catarina, Thur, Sat 01/02/18 Warfarin Sodium (COUMADIN) 4 Mg Tablet, 4 MG PO M,W,F 01/02/18 Acetaminophen (TYLENOL) 325 Mg Tablet, 500-1000 MG PO Q6H for PAIN, TAB 01/02/18 Lactobacillus Acidophilus (ACIDOPHILUS) 1 Each Capsule, 1 EACH PO QDAY, CAPSULE 01/01/18 Metoprolol Succinate (METOPROLOL SUCCINATE) 25 Mg Tab.er.24h, 12.5 TAB PO DAILY , #30 01/13/15 Carbamazepine (CARBAMAZEPINE) 200 Mg Tablet, 1.5 TAB PO BID 06/25/14 Atorvastatin Calcium (Lipitor) 20 Mg Tablet, 10 MG PO QHS, #0 0 Refills 05/17/07 Discontinued Reported Medications Ketotifen Fumarate (ZADITOR) 5 Ml Drops, 5 ML OP 01/02/18 Triamcinolone Acetonide 0.1% Cr 15 Gm Tube (TRIAMCINOLONE ACETONIDE 0.1% CREAM) 15 Gm Cream..g., 15 GM TP Y for RASH, TUBE 01/02/18 Carbamazepine (CARBAMAZEPINE) 200 Mg Cpmp.12hr, 200 MG PO BID 01/01/18 Multivitamins W-Minerals (Multivitamin) 1 Cap Capsule, 1 CAP PO DAILY 05/17/07 Fluoxetine Hcl (Prozac) 20 Mg Cap, 40 MG PO DAILY 05/17/07 Discontinued Scripts Vancomycin Hcl (VANCOCIN HCL) 250 Mg/5 Ml Soln, 500 MG PO Q6H@03,09,15,21, #1 TAB Prov:JULIA BECERRA 01/27/15 Allergies: Coded Allergies: piperacillin (Verified Allergy, Severe, rash with blisters on back, stomach, and arms, 01/01/18) tazobactam (Verified Allergy, Severe, rash with blisters on back, stomach , and arms, 01/01/18) metronidazole (Unverified Allergy, Intermediate, RASH, 01/01/18) Itching, patient turns bright red all over body lactase (Unverified Allergy, Mild, DIARRHEA, 01/01/18) hydrocodone (Verified Allergy, Unknown, 01/01/18) oxycodone (Verified Allergy, Unknown, 01/01/18) milk (Verified Adverse Reaction, Intermediate, DIARRHEA, 01/01/18) Family History: Cholelithiasis CHILD FH: Alzheimers disease BROTHER OR SISTER FH: pancreatic cancer FATHER FHx: heart failure MOTHER Review of Systems All Systems Reviewed/Normal: Yes, Except as Noted Exam Vital Signs Vital Signs Date Time Temp Pulse Resp B/P (MAP) Pulse Ox O2 Delivery O2 Flow Rate FiO2 01/04/18 17:13 65 16 01/04/18 17:04 96 Nasal Cannula 2.5 01/04/18 11:57 98.0 124/77 (93) General Appearance: Alert, Awake, No Acute Distress, Afebrile Medical Decision Making Data Points Result Diagram: 01/04/1852901/04/18529 Assessment and Plan Problems: (1) Inadequate oral nutritional intake Status: Chronic Assessment & Plan: We'll plan on a PEG tube placement tomorrow. I have explained the procedure to he and his in great detail as well as the alternatives and the risks. They indicate their understanding of this discussion and their questions have been answered. They would like to proceed with PEG tube placement. Condition Stable. Time Spent: < 30 min Venous Thromboembolism Antithrombotics Is Pt On Any Antithrombotics?: Yes JULIA MOLINA MD Jan 04, 2018 18:23
[2018-01-04] MEDS: cefTRIAXone(*) 2 GM VIAL 2 GM in NS(*) 0.9% 100 ML ADDVANT BAG 100 ML IVPB SCH (23:19)
[2018-01-05] VITALS (25 sets, daily range): BP systolic 106–131; BP diastolic 60–80
[2018-01-05] MEDS: LEVALBUTEROL 0.63 MG/3 ML NEB NEB SCH ×4 (05:42→23:17)
[2018-01-05 06:31] LABS: INR 2.15
[2018-01-05] MEDS: methylPREDNIS SUCC 125 MG/2ML IVP SCH ×3 (06:36→23:45)
--- NOTE | 2018-01-05 07:07 | General Surgery Progress Note ---
Subjective Progress Notes Subjective No new complaints. Physical Exam Vital Signs Date Time Temp Pulse Resp B/P (MAP) Pulse Ox O2 Delivery O2 Flow Rate FiO2 01/05/18 05:43 65 16 01/05/18 05:40 94 Nasal Cannula 2.5 01/05/18 01:34 98.3 131/73 (92) General Appearance: Alert, Awake, No Acute Distress, Afebrile Result Diagram: 01/04/18 0530 01/04/18 0530 Monitor Interpretation: Normal Sinus Rhythm Assessment and Plan Problems: (1) Inadequate oral nutritional intake Status: Chronic Assessment & Plan: 01/04/18: We'll plan on a PEG tube placement tomorrow. I have explained the procedure to he and his in great detail as well as the alternatives and the risks. They indicate their understanding of this discussion and their questions have been answered. They would like to proceed with PEG tube placement. 01/05/18: PEG tube placement this afternoon. Condition Stable. Time Spent: < 30 min Exam Sepsis Risk: No Definite Risk JULIA MOLINA MD Jan 05, 2018 07:07
[2018-01-05] MEDS ORDERED: NS(*) 0.9% 500 ML BAG 500 ML ONE (08:06)
[2018-01-05] MEDS: guaiFENesin 600 MG TABCR PO SCH ×2 (09:39→21:57)
[2018-01-05] MEDS: DOXYCYCLINE HYCL 100 MG TAB PO SCH ×2 (09:39→21:58)
[2018-01-05] MEDS: FLUoxetine HCL 20 MG CAP PO SCH (09:39)
[2018-01-05] MEDS: METOPROLOL SUCC XL 25 MG TABCR PO SCH (09:41)
[2018-01-05 12:02] LABS: INR 1.73
[2018-01-05] MEDS: NS 0.45%(*) 1000 ML BAG 1,000 ML IV SCH (12:35)
--- NOTE | 2018-01-05 13:52 | Medical Nutrition Therapy ---
Nutrition Anthropometrics Height (Inches): 72.00 Height (Calculated Centimeters: 182.275645 Weight (Pounds): 156 Weight (Calculated Kilograms): 70.931 BMI Calculated: 21.16 Hx Weight Loss: Yes Lake Nutrition Score: Adequate Lake Nutrition Risk Score: 17 Dietary Referral Nutrition Risk Factors: Unplanned Loss >10lbs Nutrition Risk Comment: Nutritional Diagnosis Nutritional Risk Acuity 2: Swallowing Problem Nutritional Risk Acuity 3: Fair Appetite Past Medical History: MS, dysphagia per SPL 06/25/2014 Nutritional Acuity: 2-Moderate Nutrition Diagnosis: Swallowing Difficulties Nutrition Etiology: Physiological Causes Nutrition Problem/Etiology/Sym: Swallowing Difficulty related to motor causes, e.g., neurological or muscular disorders multiple sclerosis AEB need for Mech Soft diet Energy Requirement: 2200 Protein Requirement: 71 Fluid Requirement: 2200 Diet Type: Soft Mechanical Nutrition Intervention: Cont diet as ordered, Nutrition support Nutritional Support Recommended Enteral / Parental: Tube Feeding Recommended Tube Feeding Formu: Jevity 1cal/ml-Standard Tube Feeding Supplement Streng: Full Recommended Rate: start rate 50 ml/hr for8 hrs, increase 25ml/hr q8 hrs until final rate 90ml Recommended Duration: 24 Recommended Calories: 2289 Recommended Protein: 96 Nutrition Monitoring & Eval RD Patient Assessment Time: [address] Assessment Type: RD Re-Assessment Patient Nutrition Acuity: 2-Moderate Follow Up Date: Jan 09, 2018 Nutritional Comment: Pt admitted for Pneumonia. Complaints of vomiting before admission. Also concern of swallowing difficulty d/t MS; MD to order swallowing eval and consideration to G or J tube for nutrients. Alb 4.2, High BUN. Within normal wt range with BMI of 21.2. Receiving Soft mechanical diet and consumed 50% of first meal in facility. 01/[address] [facility] thin beverage and thicken regualr liquids. PEG tube being placed today per Dr note. Recommend 90ml/hr final rate for 24 hrs but pt may need bolus or night feeding for easier home feedings. Will cont to monitor. MAHSA HERNANDEZ Jan 05, 2018 13:52
--- NOTE | 2018-01-05 14:09 | Hospitalist Progress Note ---
Subjective Progress Notes Subjective No cp/sob. He is without complaints. Physical Exam Vital Signs Date Time Temp Pulse Resp B/P (MAP) Pulse Ox O2 Delivery O2 Flow Rate FiO2 01/05/18 11:10 97.6 59 16 120/67 (84) 98 Nasal Cannula 2.5 Intake and Output 01/06/18 07:00 Intake Total 1080 ml Output Total 150 ml Balance 930 ml IV Total 461 ml Blood Product 619 ml Output Urine Total 150 ml General Appearance: Alert, Awake, No Acute Distress Respiratory: Clear to Auscultation Result Diagram: 01/04/18 0530 01/04/18 0530 Monitor Interpretation: Normal Sinus Rhythm Assessment and Plan Problems: (1) CAP (community acquired pneumonia) Status: Acute Assessment & Plan: Pneumonia with LLL infiltrate on CXR. He is currently on IV Rocephin 2 gm daily and doxycycline 100 mg bid. Xopenex nebs q 6 hours and Mucinex 600 mg bid as well. We also added Methylprednisolone. He has used steroids for MS flares in past. Should help with respiratory issues as well. Given his swallowing problems, the respiratory findings could be due to aspiration. Speech therapy recommends thickened liquids and mechanical soft diet. (2) Weight loss Assessment & Plan: It is reported that he has had 20lbs weight loss and has no appetite. He is having feeding tube placement today. 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 Getting FFP prior to surgery. (4) Atrial fibrillation Status: Resolved Assessment & Plan: He is on chronic treatment with metoprolol and warfarin. (5) MS (multiple sclerosis) Status: Chronic (6) Hyperlipidemia Status: Chronic Assessment & Plan: He is on chronic treatment with Lipitor. (7) Depression Status: Chronic Assessment & Plan: Continue prozac. Exam Sepsis Risk: No Definite Risk MICHELL MARIE MD Jan 05, 2018 14:08
[2018-01-05] MEDS ORDERED: FAMOTIDINE(*) 20MG/50ML PREMIX 50 ML IVPB ONE (15:40)
[2018-01-05] MEDS ORDERED: NORMOSOL R SOLN(*) 1000 ML BAG 1,000 ML IV ONE (15:41)
[2018-01-05] MEDS ORDERED: fentaNYL CITR 100 MCG/2 ML AMP ONE (15:42)
[2018-01-05] MEDS ORDERED: LIDOCAINE MPF 1% 5 ML VIAL ONE (15:45)
[2018-01-05] MEDS ORDERED: PROPOFOL EMUL(*) 10MG/ML 20 ML 20 ML ONE (15:45)
[2018-01-05] MEDS ORDERED: SUGAMMADEX SOD 500 MG/5 ML SDV ONE (17:00)
[2018-01-05] MEDS ORDERED: ROPIVACAINE 0.5% 20 ML VIAL ONE (17:06)
[2018-01-05] MEDS ORDERED: ONDANSETRON 4 MG/2 ML VIAL ONE (17:08)
[2018-01-05] MEDS ORDERED: DEXAMETHASONE SOD 4 MG/ML VIAL ONE (17:08)
[2018-01-05] MEDS ORDERED: ePHEDrine 25 MG/5 ML DISP.SYR IVP ONE (17:20)
--- NOTE | 2018-01-05 18:04 | Post Operative Progress Note ---
Post Operative Progress Note Date: Jan 05, 2018 Time: 17:58 Surgeon: Brianna Dictation number: [id number] Anesthesia: GETA by Dr. Crowell Pre-Op Diagnosis: Malnutrition Post-Op Diagnosis: WESLY Findings: None Procedure(s): EGD with PEG tube placement Specimen Removed:(May be N/A): None Complications: None Fluids: See anesthesia record Estimated Blood Loss: None Date OP Note Dictated: Jan 05, 2018 Time OP Note Dictated: 17:59 JULIA MOLINA MD Jan 05, 2018 18:04
--- NOTE | 2018-01-05 19:47 | OPERATIVE REPORT 1 ---
EVENT DATE: January 05, 2018 SURGEON: Mitesh Reed MD ANESTHESIOLOGIST: Castillo Crowell MD ANESTHESIA: General endotracheal anesthesia. PREOPERATIVE DIAGNOSIS Malnutrition. POSTOPERATIVE DIAGNOSIS Malnutrition. PROCEDURE PERFORMED Esophagogastroduodenoscopy with percutaneous endoscopic gastrostomy tube placement. COMPLICATIONS None. CONDITION Stable. BLOOD LOSS Minimal. INDICATIONS Mr. Gambino is an 82-year-old gentleman with multiple sclerosis who is a resident of [facility] and who apparently has not been able to eat any solid foods for the last three months. He had been requested to place a feeding tube to facilitate enteral nutrition. DESCRIPTION OF PROCEDURE The patient was brought to the operating room and placed supine on the operating table. General endotracheal anesthesia was administered. The endoscope was obtained and tested to ensure it was completely functional. It was then lubricated and inserted through his mouth through the bite block, and his esophagus was intubated without problems. The scope was advanced all the way through to the third portion of the duodenum and slowly withdrawn as I looked at all mucosal surfaces for any abnormalities. The duodenum and stomach looked unremarkable. The esophagus was somewhat tortuous. Once the scope was positioned back in the stomach, I transilluminated the stomach and could visualize this through the anterior abdominal wall, and so this was prepped and draped in a sterile fashion and anesthetized with 1% lidocaine plain that came in the kit. The access needle and the catheter were inserted through the abdominal wall and into the stomach. I removed the needle and then threaded the wire through the catheter and grasped it with a snare through the endoscope and pulled it through the patient's mouth. I then attached the Ponsky pull type PEG tube to the wire and then pulled it through the patient's mouth back through the stomach and through the abdominal wall after making an incision in the abdominal wall big enough to accommodate the feeding tube. I pulled the tube so that the mushroom cap was just against the stomach wall, but not applying any pressure. I confirmed this with the endoscope. I then cut the tube and placed the suture flange on the tube, the clamp, and then the cap on the tube. I then sewed the tube to the skin with silk on the suture flange. I then took one last look with the scope and then withdrew the scope from the patient. I then placed drain sponges around the feeding tube which were taped into place. He was awakened and extubated in the operating room and transported to the recovery room in stable condition having tolerated the procedure without any apparent problems. TALON
[2018-01-05] MEDS: cefTRIAXone(*) 2 GM VIAL 2 GM in NS(*) 0.9% 100 ML ADDVANT BAG 100 ML IVPB SCH (23:45)
[2018-01-06] MEDS: LEVALBUTEROL 0.63 MG/3 ML NEB NEB SCH ×4 (05:21→23:54)
[2018-01-06 07:31] VITALS: BP 106/62
[2018-01-06] MEDS: methylPREDNIS SUCC 125 MG/2ML IVP SCH (07:39)
--- NOTE | 2018-01-06 08:36 | General Surgery Progress Note ---
Subjective Progress Notes Subjective C/O pain around the PEG tube site, not severe. No other complaints. Physical Exam Vital Signs Date Time Temp Pulse Resp B/P (MAP) Pulse Ox O2 Delivery O2 Flow Rate FiO2 01/06/18 07:31 97.6 65 16 106/62 (77) 95 Nasal Cannula 2.0 General Appearance: Alert, Awake, No Acute Distress, Afebrile GI: Other (Soft, TTP to left of PEG site. Dressing is C/D/I.) Result Diagram: 01/04/18 0530 01/04/18 0530 Monitor Interpretation: Normal Sinus Rhythm Assessment and Plan Problems: (1) Inadequate oral nutritional intake Status: Chronic Assessment & Plan: 01/04/18: We'll plan on a PEG tube placement tomorrow. I have explained the procedure to he and his in great detail as well as the alternatives and the risks. They indicate their understanding of this discussion and their questions have been answered. They would like to proceed with PEG tube placement. 01/05/18: PEG tube placement this afternoon. 01/06/18: POD#1 s/p PEG tube placement. Doing well. Postop procedure pain as expected. OK to start tube feedings today. Pt may eat as tolerated as well. Condition Stable. Time Spent: < 30 min Exam Sepsis Risk: No Definite Risk JULIA MOLINA MD Jan 06, 2018 08:36
[2018-01-06] MEDS: DOXYCYCLINE HYCL 100 MG TAB PO SCH ×2 (09:03→20:29)
[2018-01-06] MEDS: FLUoxetine HCL 20 MG CAP PO SCH (09:03)
[2018-01-06] MEDS: guaiFENesin 600 MG TABCR PO SCH ×2 (09:03→20:29)
[2018-01-06] MEDS: METOPROLOL SUCC XL 25 MG TABCR PO SCH (09:03)
--- NOTE | 2018-01-06 09:23 | Hospitalist Progress Note ---
Subjective Progress Notes Subjective No cp/sob. No concerns from the patient or staff. Physical Exam Vital Signs Date Time Temp Pulse Resp B/P (MAP) Pulse Ox O2 Delivery O2 Flow Rate FiO2 01/06/18 07:31 97.6 65 16 106/62 (77) 95 Nasal Cannula 2.0 General Appearance: Alert, Awake, No Acute Distress Result Diagram: 01/04/18 0530 01/04/18 0530 Monitor Interpretation: Normal Sinus Rhythm Assessment and Plan Problems: (1) CAP (community acquired pneumonia) Status: Acute Assessment & Plan: Pneumonia with LLL infiltrate on CXR. He is currently on IV Rocephin 2 gm daily and doxycycline 100 mg bid. Xopenex nebs q 6 hours and Mucinex 600 mg bid as well. We also added Methylprednisolone. Will switch to prednisone today. Given his swallowing problems, the respiratory findings could be due to aspiration. Speech therapy recommends thickened liquids and mechanical soft diet. (2) Weight loss Assessment & Plan: It is reported that he has had 20lbs weight loss and has no appetite. He had a feeding tube placed on 01/05. Will start tube feedings today and titrate up as tolerated per protocol. Also, he will get water flushes of 100cc [id number] to meet his hydration needs. He likely can go back to the [facility] on 01/09, if they were able to get all the supplies. The patient might be able to go to bolus feedings or just night time feedings at some point but will be discharged on the continuous for now. 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 He did get FFP prior to surgery. Will restart warfarin with daily INR. He might need Lovenox 40mg a day to bridge, but will wait until INR results tomorrow. (4) Atrial fibrillation Status: Resolved Assessment & Plan: He is on chronic treatment with metoprolol and warfarin. (5) MS (multiple sclerosis) Status: Chronic (6) Hyperlipidemia Status: Chronic Assessment & Plan: He is on chronic treatment with Lipitor. (7) Depression Status: Chronic Assessment & Plan: Continue prozac. Exam Sepsis Risk: No Definite Risk MICHELL MARIE MD Jan 06, 2018 09:23
[2018-01-06 10:36] VITALS: BP 104/66
--- NOTE | 2018-01-06 11:25 | Medical Nutrition Therapy ---
Nutrition Anthropometrics Height (Inches): 72.00 Height (Calculated Centimeters: 182.668900 Weight (Pounds): 156 Weight (Calculated Kilograms): 70.931 BMI Calculated: 21.16 Hx Weight Loss: Yes Lake Nutrition Score: Adequate [place] Nutrition Risk Score: 17 Dietary Referral Nutrition Risk Factors: Unplanned Loss >10lbs Nutrition Risk Comment: Nutritional Diagnosis Nutritional Risk Acuity 2: Swallowing Problem Nutritional Risk Acuity 3: Fair Appetite Past Medical History: MS, dysphagia per [facility] 06/25/2014 Nutritional Acuity: 2-Moderate Nutrition Diagnosis: Swallowing Difficulties Nutrition Etiology: Physiological Causes Nutrition Problem/Etiology/Sym: Swallowing Difficulty related to motor causes, e.g., neurological or muscular disorders multiple sclerosis AEB need for enteral nutrition Energy Requirement: 2200 Protein Requirement: 71 Fluid Requirement: 2200 Diet Type: Tube Feeding (Free Water) (100 ml q 6 hrs) Nutrition Intervention: Cont diet as ordered, Nutrition support Nutritional Support Current Enteral / Parental: Tube Feeding Tube Feeding Formulas: Jevity 1cal/ml-Standard Tube Feeding Supplement Streng: Full Feeding Route: PEG Rate: 10ml/hr increase 10ml q 4 hr to final rate 90ml/hr Current Duration: 24 Current Calories: 2289 (based on final rate of 90ml) Current Protein: 96 (based on final rate of 90 ml) Free H2O bolus for hydration (: 100ml q 6 hrs Nutrition Monitoring & Eval Nutritional Goals Comment: TF will meet nutr needs RD Patient Assessment Time: [address] Assessment Type: RD Re-Assessment Patient Nutrition Acuity: 2-Moderate Follow Up Date: Jan 10, 2018 Nutritional Comment: Pt admitted for Pneumonia. Complaints of vomiting before admission. Also concern of swallowing difficulty d/t MS; to order swallowing eval and consideration to G or J tube for nutrients. Alb 4.2, High BUN. Within normal wt range with BMI of 21.2. Receiving Soft mechanical diet and consumed 50% of first meal in facility. 01/[address] recommending feeding tube, with mech soft, carbinated thin beverage and thicken regualr liquids. PEG tube being placed today per Dr note. Recommend 90ml/hr final rate for 24 hrs but pt may need bolus or night feeding for easier home feedings. Will cont to monitor. 01/06 TF initiated. Pt is to recieve final rate of 90ml/hr which will meet 104% est kcal and 135% est protein needs. Pt will recieve 1793 ml H2O from TF and additional 400 ml free water to meet fluid needs. Pt may need nocturnal or bolus feeding if sent home with TF. Will cont to monitor. MAHSA HERNANDEZ Jan 06, 2018 11:25
[2018-01-06 11:56] VITALS: BP 110/61
--- NOTE | 2018-01-06 12:29 | EKG ---
FACILITY: [facility] - [place], [place] PATIENT NAME: JULIA HOROWITZ : [id number] MR: [id number] V: [id number] EXAM DATE: ORDERING PHYSICIAN: RAINE LESLIE TECHNOLOGIST: Hever Garza Reason : Blood Pressure : / mmHG Vent. Rate : 064 BPM Atrial Rate : 064 BPM P-R Int : 128 ms QRS Dur : 092 ms QT Int : 428 ms P-R-T Axes : 027 011 042 degrees QTc Int : 441 ms Normal sinus rhythm Normal ECG When compared with ECG of 01-JAN-2018 19:01, No significant change was found Confirmed by ROBERTH GABRIEL ([id number]) on 01/06/2018 1:36:27 PM Referred By: Confirmed By:ROBERTH GABRIEL
[2018-01-06] MEDS ORDERED: WARFARIN SOD 4 MG TAB PO SCH (13:00)
[2018-01-06 14:53] VITALS: BP 107/60
[2018-01-06] MEDS: predniSONE 20 MG TAB PO SCH (16:54)
[2018-01-06 19:34] VITALS: BP 130/69
[2018-01-06 23:38] VITALS: BP 116/66
[2018-01-06] MEDS: cefTRIAXone(*) 2 GM VIAL 2 GM in NS(*) 0.9% 100 ML ADDVANT BAG 100 ML IVPB SCH (23:38)
[2018-01-07 03:51] VITALS: BP 114/65
[2018-01-07] MEDS: LEVALBUTEROL 0.63 MG/3 ML NEB NEB SCH ×4 (05:34→23:10)
[2018-01-07 06:20] LABS: PLATELET COUNT, AUTOMATED 190 K/uL (150-450)
[2018-01-07 06:31] LABS: INR 2.22
[2018-01-07 08:13] VITALS: BP 123/72
[2018-01-07] MEDS: DOXYCYCLINE HYCL 100 MG TAB PO SCH ×2 (09:37→21:41)
[2018-01-07] MEDS: guaiFENesin 600 MG TABCR PO SCH ×2 (09:37→21:40)
[2018-01-07] MEDS: predniSONE 20 MG TAB PO SCH ×2 (09:37→17:21)
[2018-01-07] MEDS: METOPROLOL SUCC XL 25 MG TABCR PO SCH (09:37)
[2018-01-07] MEDS: FLUoxetine HCL 20 MG CAP PO SCH (09:37)
[2018-01-07 11:58] VITALS: BP 118/62
--- NOTE | 2018-01-07 12:57 | Hospitalist Progress Note ---
Subjective Progress Notes Subjective No reported cp/sob. Staff has noted some coughing after meals. Physical Exam Vital Signs Date Time Temp Pulse Resp B/P (MAP) Pulse Ox O2 Delivery O2 Flow Rate FiO2 01/07/18 11:58 97.7 82 16 118/62 (80) 95 Nasal Cannula 2.0 Intake and Output 01/08/18 07:00 Intake Total 976 ml Balance 976 ml Intake Oral 0 ml Tube Feeding 796 ml Tube Irrigant 180 ml General Appearance: Alert, Awake, No Acute Distress Cardiovascular: Regular Rate and Rhythm Respiratory: Clear to Auscultation (distant breath sounds secondary to weak effort) GI: Other (Soft, non-distended, pain with pushing over the PEG tube site.) Result Diagram: 01/07/1852201/07/18522 Monitor Interpretation: Normal Sinus Rhythm Assessment and Plan Problems: (1) CAP (community acquired pneumonia) Status: Acute Assessment & Plan: Pneumonia with LLL infiltrate on CXR. He is currently on IV Rocephin 2 gm daily and doxycycline 100 mg bid. Xopenex nebs q 6 hours and Mucinex 600 mg bid as well. We also added Methylprednisolone, but switched prednisone. Given his swallowing problems, the respiratory findings could be due to aspiration. Speech therapy recommends thickened liquids and mechanical soft diet. (2) Weight loss Assessment & Plan: It is reported that he has had 20lbs weight loss and has no appetite. He had a feeding tube placed on 01/05. He is tolerating the tube feeding and the titration to goal. Also, he will get water flushes of 100cc [id number] to meet his hydration needs. He likely can go back to the [facility] on 01/09, if they were able to get all the supplies. The patient might be able to go to bolus feedings or just night time feedings at some point but will be discharged on the continuous for now. 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 He did get FFP prior to surgery. Back on warfarin with daily INR. INR today is 2.22. (4) Atrial fibrillation Status: Resolved Assessment & Plan: He is on chronic treatment with metoprolol and warfarin. (5) Hyperlipidemia Status: Chronic Assessment & Plan: He is on chronic treatment with Lipitor. (6) Depression Status: Chronic Assessment & Plan: Continue prozac. (7) MS (multiple sclerosis) Status: Chronic Exam Sepsis Risk: No Definite Risk MICHELL MARIE MD Jan 07, 2018 12:57
[2018-01-07] MEDS: WARFARIN SOD 4 MG TAB PO SCH (13:37)
[2018-01-07 15:02] VITALS: BP 116/66
[2018-01-07 19:21] VITALS: BP 111/66
[2018-01-07] MEDS ORDERED: NS(*) 0.9% 250 ML BAG 250 ML IV PRN (23:35)
[2018-01-07] MEDS: cefTRIAXone(*) 2 GM VIAL 2 GM in NS(*) 0.9% 100 ML ADDVANT BAG 100 ML IVPB SCH (23:46)
[2018-01-08 03:20] VITALS: BP 119/77
[2018-01-08] MEDS: LEVALBUTEROL 0.63 MG/3 ML NEB NEB SCH ×4 (05:50→22:58)
[2018-01-08 07:37] LABS: INR 1.96
--- NOTE | 2018-01-08 08:43 | Hospitalist Progress Note ---
Subjective Progress Notes Subjective He is without complaints. No concerns from staff. Physical Exam Vital Signs Date Time Temp Pulse Resp B/P (MAP) Pulse Ox O2 Delivery O2 Flow Rate FiO2 01/08/18 05:52 66 01/08/18 05:52 98 Nasal Cannula 1.0 01/08/18 05:50 18 01/08/18 03:20 97.9 119/77 (91) General Appearance: Alert, Awake, No Acute Distress Result Diagram: 01/07/1852201/07/18522 Monitor Interpretation: Normal Sinus Rhythm Assessment and Plan Problems: (1) CAP (community acquired pneumonia) Status: Acute Assessment & Plan: Pneumonia with LLL infiltrate on CXR. He is currently on IV Rocephin 2 gm daily and doxycycline 100 mg bid. Xopenex nebs q 6 hours and Mucinex 600 mg bid as well. We also added Methylprednisolone, but switched prednisone. Given his swallowing problems, the respiratory findings could be due to aspiration. Speech therapy recommends thickened liquids and mechanical soft diet. (2) Weight loss Assessment & Plan: It is reported that he has had 20lbs weight loss and has no appetite. He had a feeding tube placed on 01/05. He is tolerating the tube feeding and the titration to goal. Also, he will get water flushes of 100cc [id number] to meet his hydration needs. He likely can go back to the [facility] on 01/09, if they were able to get all the supplies. The patient might be able to go to bolus feedings or just night time feedings at some point but will be discharged on the continuous for now. 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 He did get FFP prior to surgery. Back on warfarin with daily INR. INR today is 1.96. (4) Atrial fibrillation Status: Resolved Assessment & Plan: He is on chronic treatment with metoprolol and warfarin. Rate controlled. (5) Hyperlipidemia Status: Chronic Assessment & Plan: He is on chronic treatment with Lipitor. (6) Depression Status: Chronic Assessment & Plan: Continue prozac. (7) MS (multiple sclerosis) Status: Chronic Exam Sepsis Risk: No Definite Risk MICHELL MARIE MD Jan 08, 2018 08:42
[2018-01-08] MEDS: DOXYCYCLINE HYCL 100 MG TAB PO SCH ×2 (09:33→20:44)
[2018-01-08] MEDS: METOPROLOL SUCC XL 25 MG TABCR PO SCH (09:33)
[2018-01-08] MEDS: predniSONE 20 MG TAB PO SCH ×2 (09:33→17:12)
[2018-01-08] MEDS: guaiFENesin 600 MG TABCR PO SCH ×2 (09:34→20:44)
[2018-01-08] MEDS: FLUoxetine HCL 20 MG CAP PO SCH (09:34)
[2018-01-08 09:35] VITALS: BP 131/72
[2018-01-08 11:39] VITALS: BP 112/60
[2018-01-08] MEDS: WARFARIN SOD 4 MG TAB PO SCH (13:36)
[2018-01-08 15:34] VITALS: BP 129/72
[2018-01-08 19:15] VITALS: BP 104/57
[2018-01-08] MEDS: cefTRIAXone(*) 2 GM VIAL 2 GM in NS(*) 0.9% 100 ML ADDVANT BAG 100 ML IVPB SCH (22:25)
[2018-01-09 02:25] VITALS: BP 119/67
[2018-01-09] MEDS: LEVALBUTEROL 0.63 MG/3 ML NEB NEB SCH ×2 (06:02→11:13)
[2018-01-09 06:11] LABS: INR 1.97
[2018-01-09 06:55] VITALS: BP 115/62
[2018-01-09] MEDS: guaiFENesin 600 MG TABCR PO SCH (08:38)
[2018-01-09] MEDS: predniSONE 20 MG TAB PO SCH (08:38)
[2018-01-09] MEDS: FLUoxetine HCL 20 MG CAP PO SCH (08:38)
[2018-01-09] MEDS: METOPROLOL SUCC XL 25 MG TABCR PO SCH (08:38)
[2018-01-09] MEDS: DOXYCYCLINE HYCL 100 MG TAB PO SCH (09:00)
[2018-01-09] MEDS ORDERED: PRED-1 PO (11:05)
--- NOTE | 2018-01-09 11:18 | Hospitalist Depart ---
Discharge Summary Reason for Hosp/Final Diag: (1) CAP (community acquired pneumonia) Status: Acute Hospital Course & Plan: He was admitted with pneumonia with LLL infiltrate on CXR. He was given IV Rocephin 2 gm daily and doxycycline 100 mg bid. Xopenex nebs q 6 hours and Mucinex 600 mg bid as well. We also added Methylprednisolone , but switched prednisone. Given his swallowing problems, the respiratory findings could be due to aspiration. Speech therapy recommends thickened liquids and mechanical soft diet. (2) Weight loss Hospital Course & Plan: It is reported that he has had 20lbs weight loss and has no appetite. He had a feeding tube placed on 01/05. He is tolerating the tube feeding and the titration to goal. Also, he will get water flushes of 100cc [id number] to meet his hydration needs. He will be discharged to the [facility] . The patient might be able to go to bolus feedings or just night time feedings at some point, but will be discharged on the continuous for now. 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 He did get FFP prior to surgery. He is taking his warfarin now. INR today is 1.97. (4) Atrial fibrillation Status: Resolved Hospital Course & Plan: He is on chronic treatment with metoprolol and warfarin. (5) Hyperlipidemia Status: Chronic Hospital Course & Plan: He is on chronic treatment with Lipitor. (6) Depression Status: Chronic Hospital Course & Plan: Continue prozac. (7) MS (multiple sclerosis) Status: Chronic Departure Weight (Pounds): 161 Weight (Ounces): 9.0 Result Diagram: 01/07/1852201/07/18522 Condition: Improved Discharge: Half-Way Discharge Instructions Home Meds Active Scripts Prednisone 10 Mg Tab (PREDNISONE 10 MG TAB) 10 Mg Tablet, 10 MG PO QDAY, #12 TAB Take 2 tablets daily for 4 days, then take 1 tablet daily for four days. Prov:ANTOINETTE GARCIA MANAGER SOCIAL [employer]IA 01/09/18 Reported Medications Ondansetron Hcl (ZOFRAN) 4 Mg Tablet, 4 MG PO PRN, TAB 01/02/18 Ketotifen Fumarate (KETOTIFEN FUMARATE) 5 Ml Drops, 5 ML OP BID 01/02/18 Cholecalciferol (Vitamin D3) (VITAMIN D3) 1,000 Unit Tablet, 2000 UNIT PO QDAY, TAB 01/02/18 Triamcinolone Acetonide 0.1% Oint 15 Gm Tube (TRIAMCINOLONE ACETONIDE 0.1% 15 GM TUBE) 15 Gm Oint...g., 15 GM TP PRN Y for RASH, TUBE 01/02/18 Omeprazole (OMEPRAZOLE) 20 Mg Capsule.dr, 1 CAP PO QDAY, CAP 01/02/18 Nystatin 100,000 Unit/Gm Top Powder (NYSTATIN 100,000 UNIT/GM TOP POWDER) 15 Gm Powder, 15 GM TP PRN, TUBE 01/02/18 Multivitamin (MULTIVITAMINS) 1 Each Capsule, 1 EACH PO QDAY, CAPSULE 01/02/18 Guaifenesin (MUCINEX) 600 Mg Tablet.er, 600 MG PO BID Y for CONGESTION 01/02/18 Polyethylene Glycol 3350 (MIRALAX) 17 Gm Powd.pack, 17 GM PO QDAY Y for CONSTIPATION, PKT 01/02/18 Fluoxetine Hcl (FLUOXETINE HCL) 20 Mg Capsule, 40 MG PO QDAY, CAPSULE 01/02/18 Warfarin Sodium (COUMADIN) 4 Mg Tablet, 8 MG PO Sun, Tue, Thur, Sat 01/02/18 Warfarin Sodium (COUMADIN) 4 Mg Tablet, 4 MG PO M,W,F 01/02/18 Acetaminophen (TYLENOL) 325 Mg Tablet, 500-1000 MG PO Q6H for PAIN, TAB 01/02/18 Lactobacillus Acidophilus (ACIDOPHILUS) 1 Each Capsule, 1 EACH PO QDAY, CAPSULE 01/01/18 Metoprolol Succinate (METOPROLOL SUCCINATE) 25 Mg Tab.er.24h, 12.5 TAB PO DAILY , #30 01/13/15 Carbamazepine (CARBAMAZEPINE) 200 Mg Tablet, 1.5 TAB PO BID 06/25/14 Atorvastatin Calcium (Lipitor) 20 Mg Tablet, 10 MG PO QHS, #0 0 Refills 05/17/07 Discontinued Reported Medications Guaifen/Phenyleph/Acetaminophn (Sudafed PE Pressure+Pain+Mucus) 1 Each Tablet, 10 MG Q4H Y for CONGESTION 01/02/18 Ketotifen Fumarate (ZADITOR) 5 Ml Drops, 5 ML OP 3/12/18 Triamcinolone Acetonide 0.1% Cr 15 Gm Tube (TRIAMCINOLONE ACETONIDE 0.1% CREAM) 15 Gm Cream..g., 15 GM TP Y for RASH, TUBE 01/02/18 Carbamazepine (CARBAMAZEPINE) 200 Mg Cpmp.12hr, 200 MG PO BID 01/01/18 Multivitamins W-Minerals (Multivitamin) 1 Cap Capsule, 1 CAP PO DAILY 05/17/07 Fluoxetine Hcl (Prozac) 20 Mg Cap, 40 MG PO DAILY 05/17/07 Discontinued Scripts Vancomycin Hcl (VANCOCIN HCL) 250 Mg/5 Ml Soln, 500 MG PO Q6H@03,09,15,21, #1 TAB Prov:JULIA PATEL DO 01/27/15 Diet: Regular Activity: As Tolerated Copies to: SHANNA CARRASQUILLO MD Venous Thromboembolism Antithrombotics Is Pt On Any Antithrombotics?: Yes ANTOINETTE GARCIA MANAGER [employer]IAL MEDIA Jan 09, 2018 11:18
== END 2018-01-09 11:50 | DRG 195 ==
LOC: ER 18:51 → MED 21:00
PROVIDERS: ADMIT Internal Medicine; ATTEND Internal Medicine
PROC: 30233K1 Transfusion of Nonautologous Frozen Plasma into Peripheral Vein, Percutaneous Approach (ICD-10-PCS; 2018-01-04)
PROC: 0DH63UZ Insertion of Feeding Device into Stomach, Percutaneous Approach (ICD-10-PCS; principal; 2018-01-05 16:56)
PROC: 3E0G76Z Introduction of Nutritional Substance into Upper GI, Via Natural or Artificial Opening (ICD-10-PCS; 2018-01-05 16:56)
DX: J18.9 Pneumonia, unspecified organism (principal); I48.2 Chronic atrial fibrillation; G35 Multiple sclerosis; I10 Essential (primary) hypertension; R09.02 Hypoxemia; R79.1 Abnormal coagulation profile; E78.5 Hyperlipidemia, unspecified; F32.9 Major depressive disorder, single episode, unspecified; K21.9 Gastro-esophageal reflux disease without esophagitis; R63.4 Abnormal weight loss; Z79.01 Long term (current) use of anticoagulants; Z88.0 Allergy status to penicillin; Z88.5 Allergy status to narcotic agent; Z88.8 Allergy status to other drugs, medicaments and biological substances; Z91.011 Allergy to milk products; Z99.81 Dependence on supplemental oxygen; Z68.21 Body mass index [BMI] 21.0-21.9, adult
CPT/HCPCS: 36415; 71045; 71046; 74230; 82040; 82247; 82310; 82374; 82435; 82565; 82947; 83605; 83880; 84075; 84132; 84155; 84295; 84450; 84460; 84484; 84520; 85025; 85379; 85610; 86900; 86901; 87040; 87502; 93005; 94640; 94667; 94668; 96360; 96361; 97161; 97165; 99285; J0696; J1100; J2001; J2405; J2704; J2795; J2930; J3010; J3490; J7040; J7050; J7512; J7614; P9017

== ENCOUNTER 2019-01-22 23:55 | Emergency (ER) | payer MEDICARE, OTHER ==
[2018-01-02 12:19] VITALS: Wt 82.1 kg
[~2019-01-22 23:55] MED LIST changes: +ACET-1966 PO; +CARB200C4 PO; +CHOL10005 PO; +FLUO-177 PO; +GUAI1TAB; +GUAI600T57 PO; +KETO5DRO13 OP; +KETO5DRO71 OP; +LACT1CAP64 PO; +MULT1CAP59 PO; +NYST15PO4 TP; +OMEP-125 PO; +ONDA4TAB97 PO; +POLY17PO25 PO; +PRED-1 PO; +TRIA15CR40 TP; +TRIA15OI20 TP; +WARF10TA10 PO; -WARF10TA34 PO; +WARF4TAB46 PO
[2019-01-23 00:14] LABS: PLATELET COUNT, AUTOMATED 152 K/uL (150-450)
--- NOTE | 2019-01-23 00:31 | RADIOLOGY IMAGING REPORT ---
FACILITY[place] [facility] [place]IENT NAME: Mitesh Gambino : 1935 MR: [id number] V: [id number] EXAM DATE: ORDERING PHYSICIAN: ENDY JOHNSON TECHNOLOGIST: Location: [facility] Patient: Mitesh Gambino : 1935 Visit/Account:[id number] Date of Sevice: 01/23/2019 PORTABLE CHEST: Indication: Cough and dyspnea. Technique: A single frontal film was obtained. Comparison: 01/02/2018 Skeletal and soft tissue structures: There are chronic degenerative changes in the shoulders and spin e. No acute skeletal deformity is identified. Heart and mediastinum: Within normal limits. Lung blanco: Well expanded. There are chronic linear fibrotic opacities at both bases, without signif icant change. No acute parenchymal process is clearly identified. Pleural spaces: Unremarkable. Impression: No acute process or significant change. Report Dictated By: Sheldon Patino MD at 01/23/2019 12:25 AM Report E-Signed By: Sheldon Patino MD at 01/23/2019 12:27 AM WSN:[id number]
[2019-01-23 00:40] LABS: INR 1.92
[2019-01-23] MEDS ORDERED: ALBUTEROL/IPRATROPIUM 3 ML NEB NEB ONE ×2 (00:45→02:30)
--- NOTE | 2019-01-23 00:45 | ER Report ---
History and Physical Time Seen By MD: 00:00 Hx. of Stated Complaint: aspirated yesterday HPI/ROS CHIEF COMPLAINT: Aspiration, cough HISTORY OF PRESENT ILLNESS: 83[facility]-old [facility] resident, DO NOT RESUSCITATE, presents after [facility] had noted that he was coughing last evening, approximately 30 hours prior to arrival, while getting his nightly tube feeds. The nurse speculated that he may have swallowed and aspirated some contents. Since this time, patient has had occasional coughing spells. Patient states that he feels generally weak, but denies other acute symptoms. His review of systems is somewhat limited due to his memory, however patient is able to clearly state that he is pain free other than feeling generally weak.` He denies chest pain, difficulty breathing, nausea, vomiting, change in urination, diarrhea. He notes that he has multiple sclerosis and has weakness due to this. REVIEW OF SYSTEMS: Constitutional: No fever, no chills. Eyes: no blurred vision ENT: No sore throat. Cardiovascular: no chest pain Respiratory: above Gastrointestinal: No abdominal pain, no vomiting. Genitourinary: no dysuria Musculoskeletal: No back pain. Skin: No rashes. Neurological: No headache. Remainder of the 14 system rev: Yes Allergies: Coded Allergies: piperacillin (Verified Allergy, Severe, rash with blisters on back, stomach, and arms, 01/23/19) tazobactam (Verified Allergy, Severe, rash with blisters on back, stomach, and arms, 01/23/19) metronidazole (Unverified Allergy, Intermediate, RASH, 01/23/19) Itching, patient turns bright red all over body lactase (Unverified Allergy, Mild, DIARRHEA, 01/23/19) hydrocodone (Verified Allergy, Unknown, 01/23/19) oxycodone (Verified Allergy, Unknown, 01/23/19) milk (Verified Adverse Reaction, Intermediate, DIARRHEA, 01/23/19) Home Meds Reported Medications Tobramycin/Dexamethasone (TOBRADEX EYE DROPS) 5 Ml Susp, 5 ML OU BID 01/23/19 Guaifenesin (MUCINEX) 600 Mg Tablet.er, 600 MG PO BID 01/23/19 Fluoxetine Hcl (FLUOXETINE HCL) 40 Mg Capsule, 40 MG PO QDAY, CAPSULE 01/23/19 Fluticasone Prop 50 Mcg Ns (FLONASE 50 MCG NS) 16 Gm [place].susp, 2 SPRAYS NS QDAY, BOT 01/23/19 Cholecalciferol (Vitamin D3) (VITAMIN D3) 1,000 Unit Tablet, 2000 UNIT PO QDAY, TAB 01/02/18 Omeprazole (OMEPRAZOLE) 20 Mg Capsule.dr, 1 CAP PO QDAY, CAP 01/02/18 Warfarin Sodium (COUMADIN) 4 Mg Tablet, 8 MG PO Elaine,Mo,We,Fr,Sa 01/02/18 Warfarin Sodium (COUMADIN) 4 Mg Tablet, 10 MG PO tue,thur 01/02/18 Lactobacillus Acidophilus (ACIDOPHILUS) 1 Each Capsule, 1 EACH PO QDAY, CAPSULE 01/01/18 Carbamazepine (CARBAMAZEPINE) 200 Mg Tablet, 1 TAB PO BID 06/25/14 Discontinued Reported Medications Guaifenesin (GUAIFENESIN) 100 Mg/5 Ml Liquid, 15 ML PO PRN PRN for COUGH 01/23/19 Tramadol Hcl (TRAMADOL HCL) 50 Mg Tablet, 50 MG PO Q6H PRN for PAIN, TAB 01/23/19 Tobramycin/Dexamethasone (TOBRADEX EYE OINTMENT) 3.5 Gm Oint, 3.5 GM OD BID, TUBE 01/23/19 Ondansetron Hcl (ZOFRAN) 4 Mg Tablet, 4 MG PO PRN, TAB 01/02/18 Ketotifen Fumarate (KETOTIFEN FUMARATE) 5 Ml Drops, 5 ML OP BID 01/02/18 Triamcinolone Acetonide 0.1% Oint 15 Gm Tube (TRIAMCINOLONE ACETONIDE 0.1% 15 GM TUBE) 15 Gm Oint...g., 15 GM TP PRN PRN for RASH, TUBE 01/02/18 Nystatin 100,000 Unit/Gm Top Powder (NYSTATIN 100,000 UNIT/GM TOP POWDER) 15 Gm Powder, 15 GM TP PRN, TUBE 01/02/18 Multivitamin (MULTIVITAMINS) 1 Each Capsule, 1 EACH PO QDAY, CAPSULE 01/02/18 Guaifenesin (MUCINEX) 600 Mg Tablet.er, 600 MG PO BID 01/02/18 Polyethylene Glycol 3350 (MIRALAX) 17 Gm Powd.pack, 17 GM PO QDAY PRN for CONSTIPATION, PKT 01/02/18 Fluoxetine Hcl (FLUOXETINE HCL) 20 Mg Capsule, 40 MG PO QDAY, CAPSULE 01/02/18 Acetaminophen (TYLENOL) 325 Mg Tablet, 500-1000 MG PO Q6H for PAIN, TAB 01/02/18 Metoprolol Succinate (METOPROLOL SUCCINATE) 25 Mg Tab.er.24h, 12.5 TAB PO DAILY, #30 01/13/15 Atorvastatin Calcium (Lipitor) 20 Mg Tablet, 10 MG PO QHS, #0 0 Refills 05/17/07 Discontinued Scripts Prednisone 10 Mg Tab (PREDNISONE 10 MG TAB) 10 Mg Tablet, 10 MG PO QDAY, #12 TAB Take 2 tablets daily for 4 days, then take 1 tablet daily for four days. Prov:GARCIAANTOINETTE [employer] 01/09/18 Reviewed Nurses Notes: Yes Old Medical Records Reviewed: Yes Hx Smoking: No Smoking Status: Never Smoker Exposure to Second Hand Smoke?: No Hx Substance Use Disorder: No Hx Alcohol Use: No Constitutional Vital Sign - Last 24 Hours 01/22/19 01/23/19 01/23/19 01/23/19 23:55 00:01 00:06 00:15 Temp 98.3 Pulse ??? 96 Resp 22 B/P (MAP) 122/78 (93) 122/78 106/61 (76) Pulse Ox 90 O2 Delivery Nasal Cannula 01/23/19 01/23/19 01/23/19 01/23/19 00:30 00:45 00:45 00:45 Pulse 92 Resp 20 B/P (MAP) 107/63 (78) 97/62 (74) Pulse Ox 93 O2 Delivery Nasal Cannula O2 Flow Rate 4.0 01/23/19 01/23/19 01/23/19 01/23/19 00:52 00:55 01:30 02:00 Pulse 94 95 96 92 Resp 20 B/P (MAP) 118/67 (84) Pulse Ox 92 91 01/23/19 01/23/19 01/23/19 01/23/19 02:15 02:30 02:40 02:40 Pulse 92 102 Resp 18 B/P (MAP) 122/72 (89) 107/58 (74) Pulse Ox 90 92 O2 Delivery Nasal Cannula O2 Flow Rate 4.0 01/23/19 01/23/19 01/23/19 01/23/19 02:45 02:49 03:00 03:15 Pulse 99 Resp 18 B/P (MAP) 109/65 (80) 103/64 (77) 107/58 (74) Physical Exam General Appearance: The patient is alert, has no immediate need for airway protection and no signs of toxicity. Eyes: Pupils equal and round no pallor or injection. ENT, Mouth: Mucous membranes are moist. Respiratory: There are no retractions, pt has bibasilar ronchi Cardiovascular: Regular rate and rhythm. Gastrointestinal: Abdomen is soft and non tender, no masses, bowel sounds normal. G tube in place, without surrounding erythema or tenderness. Neurological: Pt is awake, alert, oriented to person, place Skin: Warm and dry, no rashes. Musculoskeletal: Extremities are nontender, nonswollen. Pt is able to lift all extremities. DIFFERENTIAL DIAGNOSIS: After history and physical exam differential diagnosis was considered for aspiration, pneumonia, acs, respiratory distress, or other emergent etiology of symptoms. Medical Decision Making Data Points Result Diagram: 01/23/19 0024 01/23/19 0024 Laboratory Hematology Test 01/23/19 00:24 01/23/19 01:55 Red Blood Count 4.97 M/uL (4.00-5.60) Mean Corpuscular Volume 101.1 fL (80.0-96.0) Mean Corpuscular Hemoglobin 34.0 pg (26.0-33.0) Mean Corpuscular Hemoglobin Concent 33.6 g/dL (32.0-36.0) Red Cell Distribution Width 14.4 % (11.5-14.5) Mean Platelet Volume 8.3 fL (7.2-11.1) Neutrophils (%) (Auto) 78.5 % (39.4-72.5) Lymphocytes (%) (Auto) 11.8 % (17.6-49.6) Monocytes (%) (Auto) 9.3 % (4.1-12.4) Eosinophils (%) (Auto) 0.0 % (0.4-6.7) Basophils (%) (Auto) 0.4 % (0.3-1.4) Nucleated RBC Relative Count (auto) 0.1 /100WBC Neutrophils # (Auto) 6.1 K/uL (2.0-7.4) Lymphocytes # (Auto) 0.9 K/uL (1.3-3.6) Monocytes # (Auto) 0.7 K/uL (0.3-1.0) Eosinophils # (Auto) 0.0 K/uL (0.0-0.5) Basophils # (Auto) 0.0 K/uL (0.0-0.1) Nucleated RBC Absolute Count (auto) 0.01 K/uL Peripheral Blood Smear No Y/N Prothrombin Time 22.3 seconds (12.0-14.4) Prothromb Time International Ratio 1.92 Activated Partial Thromboplast Time 42 seconds (23-35) Sodium Level 135 mmol/L (137-145) Potassium Level 4.1 mmol/L (3.5-5.0) Chloride Level 96 mmol/L (98-107) Carbon Dioxide Level 29 mmol/L (22-30) Blood Urea Nitrogen 31 mg/dl (9-21) Creatinine 1.10 mg/dl (0.66-1.25) Glomerular Filtration Rate Calc > 60.0 Random Glucose 132 mg/dl (75-110) Calcium Level 8.8 mg/dl (8.4-10.2) Total Bilirubin 0.3 mg/dl (0.2-1.3) Aspartate Amino Transf (AST/SGOT) 24 U/L (0-35) Alanine Aminotransferase (ALT/SGPT) 17 U/L (0-56) Alkaline Phosphatase 111 U/L (0-126) Troponin I < 0.012 ng/ml B-Type Natriuretic Peptide 45 pg/ml (0-100) Total Protein 7.7 g/dl (6.3-8.2) Albumin 4.1 g/dl (3.5-5.0) Influenza Virus Type A (PCR) Negative (NEGATIVE) Influenza Virus Type B (PCR) Negative (NEGATIVE) Chemistry Test 01/23/19 00:24 01/23/19 01:55 White Blood Count 7.7 k/uL (4.5-11.0) Red Blood Count 4.97 M/uL (4.00-5.60) Hemoglobin 16.9 g/dL (14.0-18.0) Hematocrit 50.2 % (42.0-52.0) Mean Corpuscular Volume 101.1 fL (80.0-96.0) Mean Corpuscular Hemoglobin 34.0 pg (26.0-33.0) Mean Corpuscular Hemoglobin Concent 33.6 g/dL (32.0-36.0) Red Cell Distribution Width 14.4 % (11.5-14.5) Platelet Count 152 K/uL (150-450) Mean Platelet Volume 8.3 fL (7.2-11.1) Neutrophils (%) (Auto) 78.5 % (39.4-72.5) Lymphocytes (%) (Auto) 11.8 % (17.6-49.6) Monocytes (%) (Auto) 9.3 % (4.1-12.4) Eosinophils (%) (Auto) 0.0 % (0.4-6.7) Basophils (%) (Auto) 0.4 % (0.3-1.4) Nucleated RBC Relative Count (auto) 0.1 /100WBC Neutrophils # (Auto) 6.1 K/uL (2.0-7.4) Lymphocytes # (Auto) 0.9 K/uL (1.3-3.6) Monocytes # (Auto) 0.7 K/uL (0.3-1.0) Eosinophils # (Auto) 0.0 K/uL (0.0-0.5) Basophils # (Auto) 0.0 K/uL (0.0-0.1) Nucleated RBC Absolute Count (auto) 0.01 K/uL Peripheral Blood Smear No Y/N Prothrombin Time 22.3 seconds (12.0-14.4) Prothromb Time International Ratio 1.92 Activated Partial Thromboplast Time 42 seconds (23-35) Glomerular Filtration Rate Calc > 60.0 Calcium Level 8.8 mg/dl (8.4-10.2) Total Bilirubin 0.3 mg/dl (0.2-1.3) Aspartate Amino Transf (AST/SGOT) 24 U/L (0-35) Alanine Aminotransferase (ALT/SGPT) 17 U/L (0-56) Alkaline Phosphatase 111 U/L (0-126) Troponin I < 0.012 ng/ml B-Type Natriuretic Peptide 45 pg/ml (0-100) Total Protein 7.7 g/dl (6.3-8.2) Albumin 4.1 g/dl (3.5-5.0) Influenza Virus Type A (PCR) Negative (NEGATIVE) Influenza Virus Type B (PCR) Negative (NEGATIVE) Coagulation Test 01/23/19 00:24 Prothrombin Time 22.3 seconds Prothromb Time International Ratio 1.92 Activated Partial Thromboplast Time 42 seconds EKG/Imaging EKG Interpretation 12 lead EKG: Rhythm: normal sinus rhythm [place]: normal QRS: normal ST segments: t wave flattened, NSR limited by artifact. [ ] Monitor Interpretation: Normal Sinus Rhythm ED Course/Re-evaluation ED Course 83-year-old male presents one day after possible aspiration. Of note he has been coughing more than normal. His workup is unremarkable in the emergency department with the exception of a mild hypoxia. Therefore, I ordered CT to rule out PE, subtle aspiration or pneumonia. CT is unremarkable. Do not find clear cause of patient's hypoxia, however he is comfortable after ED evaluation. Patient's son is comfortable returning him to facility on oxygen. I recommend follow-up in one day with primary doctor and close reevaluation. Patient and son understands strict return precautions. Decision to Disposition Date: Jan 23, 2019 Decision to Disposition Time: 03:33 Depart Departure Latest Vital Signs Vital Signs Date Time Temp Pulse Resp B/P (MAP) Pulse Ox O2 Delivery O2 Flow Rate FiO2 01/23/19 03:15 107/58 (74) 01/23/19 02:49 99 18 01/23/19 02:40 92 Nasal Cannula 4.0 01/23/19 00:06 98.3 Impression: Primary Impression: Dyspnea Condition: Improved Disposition: ASSISTED LIVING FACILITY Referrals: SHAY CORREIA MD (PCP) 5 Days Patient Instructions: Dyspnea (ED) Additional Instructions: Please use oxygen as needed to keep Mitesh from feeling short of breath. Please return immediately for fevers, increased difficulty breathing, worsening cough, chest pain, or any concerns. While we do not find the cause of his symptoms tonight, it is possible that an infection or other process is developing. It is imperative that you follow up closely and return immediately if worse. Problem Qualifiers Primary Impression: Dyspnea Dyspnea type: unspecified Qualified Codes: R06.00 - Dyspnea, unspecified ENDY JOHNSON MD Jan 23, 2019 00:45
[2019-01-23] MEDS ORDERED: IOPAMIDOL 76% 150 ML INFUS BTL 150 ML ONE (01:21)
[2019-01-23] MEDS ORDERED: NS 0.9% 25 ML BAG 50 ML ONE (01:21)
--- NOTE | 2019-01-23 02:20 | RADIOLOGY IMAGING REPORT ---
FACILITY: [facility] PATIENT NAME: Mitesh Gambino : 1935 MR: [id number] V: [id number] EXAM DATE: ORDERING PHYSICIAN: ENDY JOHNSON TECHNOLOGIST: Location: [facility] Patient: Mitesh Gambino : 1935 Visit/Account:[id number] Date of Sevice: 01/23/2019 CT angiogram of the chest: Indication: Dyspnea and hypoxia. Technique: Helical CT was performed through the chest following IV contrast enhancement with 75 cc of Isovue 370. Multiplanar reconstructions and MIP images are reviewed. One of the following dose optimization techniques was utilized in the performance of this exam: Autom ated exposure control; adjustment of the mA and/or kV according to the patient's size; or use of an i terative reconstruction technique. Specific details can be referenced in the facility's radiology CT exam operational policy. Comparison: Portable chest radiographs from 01/23/2019 and 01/02/2018. Pulmonary arteries: There is uniform contrast enhancement. There are no signs of pulmonary emboli. Aorta and great vessels: Unremarkable, as visualized. There are no signs of aneurysm. There is minima l atherosclerotic calcification. Heart and pericardial soft tissues: Unremarkable. Mediastinal soft tissues: Unremarkable. Lung blanco: There are emphysematous changes in both upper lobes. There are scattered linear opacitie s in the upper and lower lung blanco, compatible with chronic fibrosis, as observed on the plain radi ographs. No acute parenchymal process is clearly identified. Pleural spaces: No evidence of effusion, focal pleural thickening, calcification, soft tissue mass, o r pneumothorax. 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 There are c hronic degenerative changes in the shoulders. No acute skeletal deformity is clearly identified. Upper abdomen: Small cysts are present in the left kidney. Otherwise unremarkable. IMPRESSION: No evidence of pulmonary emboli. No acute parenchymal or pleural process is clearly ident ified. Report Dictated By: Sheldon Patino MD at 01/23/2019 2:08 AM Report E-Signed By: Sheldon Patino MD at 01/23/2019 2:16 AM WSN:[id number]
[2019-01-23 03:15] VITALS: BP 107/58
--- NOTE | 2019-01-23 06:31 | EKG ---
FACILITY: [facility] PATIENT NAME: JULIA HOROWITZ : [id number] MR: [id number] V: [id number] EXAM DATE: ORDERING PHYSICIAN: ENDY JOHNSON TECHNOLOGIST: GIOVANNY Test Reason : DYSPNEA Blood Pressure : / mmHG Vent. Rate : 095 BPM Atrial Rate : 095 BPM P-R Int : 132 ms QRS Dur : 080 ms QT Int : 352 ms P-R-T Axes : -05 -15 041 degrees QTc Int : 442 ms Sinus rhythm Left axis deviation Diffuse artifact - repeat if needed Abnormal ECG Confirmed by RAINE LESLIE ([id number] on 01/23/2019 6:35:44 AM Referred By: Confirmed By:RAINE LESLIE
[2019-01-23] MEDS ORDERED: TOBDOO OD (17:20)
[2019-01-23] MEDS ORDERED: TRAM-420 PO (17:20)
[2019-01-23] MEDS ORDERED: FLUT16SP19 NS (17:20)
[2019-01-23] MEDS ORDERED: FLUO40CA67 PO (17:20)
[2019-01-23] MEDS ORDERED: GUAI-206 PO (17:20)
[2019-01-23] MEDS ORDERED: GUAI600T57 PO (17:41)
[2019-01-23] MEDS ORDERED: TOBROD OU (18:18)
== END 2019-01-23 03:45 | disposition home or self-care (01) ==
LOC: ER 23:59
DX: R06.00 Dyspnea, unspecified (principal); R09.02 Hypoxemia; N28.1 Cyst of kidney, acquired; Z79.01 Long term (current) use of anticoagulants
CPT/HCPCS: 36415; 71045; 71275; 83880; 84484; 85025; 85610; 85730; 87502; 93005; 94640; 99284; J7620; Q9967; 82040; 82247; 82310; 82374; 82435; 82565; 82947; 84075; 84132; 84155; 84295; 84450; 84460; 84520

== ENCOUNTER 2019-01-23 13:55 | Inpatient (IN) | payer MEDICARE, OTHER ==
[~2019-01-23] VITALS: Ht 182.9 cm; Wt 85.7 kg
--- NOTE | 2019-01-23 14:00 | ER Report ---
History and Physical Time Seen By MD: 13:59 HPI/ROS CHIEF COMPLAINT: Increased oxygen demand, fevers, rash on torso HISTORY OF PRESENT ILLNESS: Patient is an 83-year-old male here with complaints of rash on torso, wet cough, increased oxygen demand on 6 L mask and 4 L nasal cannula. Patient reportedly was seen here yesterday which time there was no determined cause for the patient shortness breath and cough. CTA of the chest at that time was unremarkable however patient reports it worsening symptoms. Patient is do not resuscitate. Patient's is concerned of the patient's abdominal distention and rash. Due to the patient's clinical presentation, sepsis workup was initiated at time of arrival with empiric antimicrobial therapy. Patient was febrile, tachycardic, hypoxic with oxygen levels of 84% on room air. Flu was negative, C. difficile was negative yesterday. REVIEW OF SYSTEMS: Constitutional: + fever, + chills. Eyes: No discharge. ENT: No sore throat. Cardiovascular: No chest pain, no palpitations. Respiratory: + cough, + shortness of breath. Gastrointestinal: No abdominal pain, no vomiting. Genitourinary: No hematuria. Musculoskeletal: No back pain. Skin: No rashes. Neurological: No headache. Allergies: Coded Allergies: piperacillin (Verified Allergy, Severe, rash with blisters on back, stomach, and arms, 01/23/19) tazobactam (Verified Allergy, Severe, rash with blisters on back, stomach, and arms, 01/23/19) metronidazole (Unverified Allergy, Intermediate, RASH, 01/23/19) Itching, patient turns bright red all over body lactase (Unverified Allergy, Mild, DIARRHEA, 01/23/19) hydrocodone (Verified Allergy, Unknown, 01/23/19) oxycodone (Verified Allergy, Unknown, 01/23/19) milk (Verified Adverse Reaction, Intermediate, DIARRHEA, 01/23/19) Home Meds Active Scripts Prednisone 10 Mg Tab (PREDNISONE 10 MG TAB) 10 Mg Tablet, 10 MG PO QDAY, #12 TAB Take 2 tablets daily for 4 days, then take 1 tablet daily for four days. Prov:ANTOINETTE GARCIA DIRECTOR RADIO 01/09/18 Reported Medications Ondansetron Hcl (ZOFRAN) 4 Mg Tablet, 4 MG PO PRN, TAB 01/02/18 Ketotifen Fumarate (KETOTIFEN FUMARATE) 5 Ml Drops, 5 ML OP BID 01/02/18 Cholecalciferol (Vitamin D3) (VITAMIN D3) 1,000 Unit Tablet, 2000 UNIT PO QDAY, TAB 01/02/18 Triamcinolone Acetonide 0.1% Oint 15 Gm Tube (TRIAMCINOLONE ACETONIDE 0.1% 15 GM TUBE) 15 Gm Oint...g., 15 GM TP PRN PRN for RASH, TUBE 01/02/18 Omeprazole (OMEPRAZOLE) 20 Mg Capsule.dr, 1 CAP PO QDAY, CAP 01/02/18 Nystatin 100,000 Unit/Gm Top Powder (NYSTATIN 100,000 UNIT/GM TOP POWDER) 15 Gm Powder, 15 GM TP PRN, TUBE 01/02/18 Multivitamin (MULTIVITAMINS) 1 Each Capsule, 1 EACH PO QDAY, CAPSULE 01/02/18 Guaifenesin (MUCINEX) 600 Mg Tablet.er, 600 MG PO BID 01/02/18 Polyethylene Glycol 3350 (MIRALAX) 17 Gm Powd.pack, 17 GM PO QDAY PRN for CONSTIPATION, PKT 01/02/18 Fluoxetine Hcl (FLUOXETINE HCL) 20 Mg Capsule, 40 MG PO QDAY, CAPSULE 01/02/18 Warfarin Sodium (COUMADIN) 4 Mg Tablet, 8 MG PO Sun, Tue, Thur, Sat 01/02/18 Warfarin Sodium (COUMADIN) 4 Mg Tablet, 4 MG PO M,W,F 01/02/18 Acetaminophen (TYLENOL) 325 Mg Tablet, 500-1000 MG PO Q6H for PAIN, TAB 01/02/18 Lactobacillus Acidophilus (ACIDOPHILUS) 1 Each Capsule, 1 EACH PO QDAY, CAPSULE 01/01/18 Metoprolol Succinate (METOPROLOL SUCCINATE) 25 Mg Tab.er.24h, 12.5 TAB PO DAILY, #30 01/13/15 Carbamazepine (CARBAMAZEPINE) 200 Mg Tablet, 1 TAB PO BID 06/25/14 Atorvastatin Calcium (Lipitor) 20 Mg Tablet, 10 MG PO QHS, #0 0 Refills 05/17/07 Hx Smoking: No Smoking Status: Never Smoker Exposure to Second Hand Smoke?: No Hx Substance Use Disorder: No Hx Alcohol Use: No Constitutional Vital Sign - Last 24 Hours 01/23/19 01/23/19 01/23/19 01/23/19 14:04 14:04 14:17 14:25 Temp 100.7 Pulse 112 110 Resp 17 27 B/P (MAP) 126/66 (86) 126/66 115/68 (84) Pulse Ox 84 90 O2 Delivery Nasal Cannula Oxy Mask O2 Flow Rate 5.0 10 01/23/19 01/23/19 01/23/19 01/23/19 14:30 14:41 14:44 14:45 Temp 99.9 B/P (MAP) 75/41 (52) 116/63 (80) 112/56 (74) 01/23/19 01/23/19 01/23/19 14:55 15:15 15:30 Pulse 105 103 Resp 28 B/P (MAP) 107/56 (73) 77/51 (60) Pulse Ox 93 93 O2 Delivery Oxy Mask O2 Flow Rate 8 Physical Exam General Appearance: The patient is alert, has no immediate need for airway protection and no signs of toxicity. Moderate distress secondary to cough and shortness breath Eyes: Pupils equal and round no pallor or injection. ENT, Mouth: Mucous membranes are moist. Respiratory:+ Wet cough, increased oxygen demand requiring 6 L mask, 4 L nasal cannula Cardiovascular: Regular and tachycardic Gastrointestinal: Abdomen is soft and non tender, no masses, bowel sounds normal. Neurological: No focal neurological deficits, baseline poor memory, poor historian Skin: Erythematous blanchable rash on the torso, upper extremities and abdomen Musculoskeletal: Neck is supple non tender. Extremities are nontender, nonswollen and have full range of motion. DIFFERENTIAL DIAGNOSIS: After history and physical exam differential diagnosis was considered for adult fever including but not limited to viral syndromes including influenza, urinary tract infection, pneumonia and sepsis. Medical Decision Making Data Points Result Diagram: 01/23/19 1420 01/23/19 1420 Laboratory Hematology Test 01/23/19 14:10 01/23/19 14:20 Urine Color Yellow Urine Clarity Clear Urine pH 5.0 pH (4.8-9.5) Urine Specific [place] 1.043 Urine Protein Negative mg/dL (NEGATIVE) Urine Glucose (UA) Negative mg/dL (NEGATIVE) Urine Ketones Negative mg/dL (NEGATIVE) Urine Blood Negative (NEGATIVE) Urine Nitrite Negative (NEGATIVE) Urine Bilirubin Negative (NEGATIVE) Urine Urobilinogen Negative mg/dL (0.2-1.9) Urine Leukocyte Esterase Negative (NEGATIVE) Urine RBC <1 /HPF (0-2/HPF) Urine WBC 1 /HPF (0-5/HPF) Urine Squamous Epithelial Cells Few /LPF (</=FEW) Urine Bacteria Negative /HPF (NONE-FEW) Urine Mucus Few /HPF (NONE-FEW) Red Blood Count 4.24 M/uL (4.00-5.60) Mean Corpuscular Volume 100.2 fL (80.0-96.0) Mean Corpuscular Hemoglobin 33.8 pg (26.0-33.0) Mean Corpuscular Hemoglobin Concent 33.7 g/dL (32.0-36.0) Red Cell Distribution Width 14.0 % (11.5-14.5) Mean Platelet Volume 7.9 fL (7.2-11.1) Neutrophils (%) (Auto) 92.0 % (39.4-72.5) Lymphocytes (%) (Auto) 2.5 % (17.6-49.6) Monocytes (%) (Auto) 5.0 % (4.1-12.4) Eosinophils (%) (Auto) 0.3 % (0.4-6.7) Basophils (%) (Auto) 0.2 % (0.3-1.4) Nucleated RBC Relative Count (auto) 0.1 /100WBC Neutrophils # (Auto) 9.2 K/uL (2.0-7.4) Lymphocytes # (Auto) 0.2 K/uL (1.3-3.6) Monocytes # (Auto) 0.5 K/uL (0.3-1.0) Eosinophils # (Auto) 0.0 K/uL (0.0-0.5) Basophils # (Auto) 0.0 K/uL (0.0-0.1) Nucleated RBC Absolute Count (auto) 0.01 K/uL Peripheral Blood Smear Yes Y/N Prothrombin Time 26.1 seconds (12.0-14.4) Prothromb Time International Ratio 2.34 Activated Partial Thromboplast Time 50 seconds (23-35) Sodium Level 138 mmol/L (137-145) Potassium Level 4.4 mmol/L (3.5-5.0) Chloride Level 100 mmol/L (98-107) Carbon Dioxide Level 26 mmol/L (22-30) Blood Urea Nitrogen 33 mg/dl (9-21) Creatinine 1.00 mg/dl (0.66-1.25) Glomerular Filtration Rate Calc > 60.0 Random Glucose 148 mg/dl (75-110) Lactate 1.8 mmol/L (0.7-2.1) Calcium Level 8.9 mg/dl (8.4-10.2) Total Bilirubin 0.3 mg/dl (0.2-1.3) Aspartate Amino Transf (AST/SGOT) 24 U/L (0-35) Alanine Aminotransferase (ALT/SGPT) 23 U/L (0-56) Alkaline Phosphatase 116 U/L (0-126) Total Protein 7.3 g/dl (6.3-8.2) Albumin 4.0 g/dl (3.5-5.0) Lipase 21 U/L (23-300) Chemistry Test 01/23/19 14:10 01/23/19 14:20 Urine Color Yellow Urine Clarity Clear Urine pH 5.0 pH (4.8-9.5) Urine Specific [place] 1.043 Urine Protein Negative mg/dL (NEGATIVE) Urine Glucose (UA) Negative mg/dL (NEGATIVE) Urine Ketones Negative mg/dL (NEGATIVE) Urine Blood Negative (NEGATIVE) Urine Nitrite Negative (NEGATIVE) Urine Bilirubin Negative (NEGATIVE) Urine Urobilinogen Negative mg/dL (0.2-1.9) Urine Leukocyte Esterase Negative (NEGATIVE) Urine RBC <1 /HPF (0-2/HPF) Urine WBC 1 /HPF (0-5/HPF) Urine Squamous Epithelial Cells Few /LPF (</=FEW) Urine Bacteria Negative /HPF (NONE-FEW) Urine Mucus Few /HPF (NONE-FEW) White Blood Count 10.0 k/uL (4.5-11.0) Red Blood Count 4.24 M/uL (4.00-5.60) Hemoglobin 14.3 g/dL (14.0-18.0) Hematocrit 42.5 % (42.0-52.0) Mean Corpuscular Volume 100.2 fL (80.0-96.0) Mean Corpuscular Hemoglobin 33.8 pg (26.0-33.0) Mean Corpuscular Hemoglobin Concent 33.7 g/dL (32.0-36.0) Red Cell Distribution Width 14.0 % (11.5-14.5) Platelet Count 207 K/uL (150-450) Mean Platelet Volume 7.9 fL (7.2-11.1) Neutrophils (%) (Auto) 92.0 % (39.4-72.5) Lymphocytes (%) (Auto) 2.5 % (17.6-49.6) Monocytes (%) (Auto) 5.0 % (4.1-12.4) Eosinophils (%) (Auto) 0.3 % (0.4-6.7) Basophils (%) (Auto) 0.2 % (0.3-1.4) Nucleated RBC Relative Count (auto) 0.1 /100WBC Neutrophils # (Auto) 9.2 K/uL (2.0-7.4) Lymphocytes # (Auto) 0.2 K/uL (1.3-3.6) Monocytes # (Auto) 0.5 K/uL (0.3-1.0) Eosinophils # (Auto) 0.0 K/uL (0.0-0.5) Basophils # (Auto) 0.0 K/uL (0.0-0.1) Nucleated RBC Absolute Count (auto) 0.01 K/uL Peripheral Blood Smear Yes Y/N Prothrombin Time 26.1 seconds (12.0-14.4) Prothromb Time International Ratio 2.34 Activated Partial Thromboplast Time 50 seconds (23-35) Glomerular Filtration Rate Calc > 60.0 Lactate 1.8 mmol/L (0.7-2.1) Calcium Level 8.9 mg/dl (8.4-10.2) Total Bilirubin 0.3 mg/dl (0.2-1.3) Aspartate Amino Transf (AST/SGOT) 24 U/L (0-35) Alanine Aminotransferase (ALT/SGPT) 23 U/L (0-56) Alkaline Phosphatase 116 U/L (0-126) Total Protein 7.3 g/dl (6.3-8.2) Albumin 4.0 g/dl (3.5-5.0) Lipase 21 U/L (23-300) Coagulation Test 01/23/19 14:20 Prothrombin Time 26.1 seconds Prothromb Time International Ratio 2.34 Activated Partial Thromboplast Time 50 seconds Urinalysis Test 01/23/19 14:10 Urine Color Yellow Urine Clarity Clear Urine pH 5.0 pH (4.8-9.5) Urine Specific [place] 1.043 Urine Protein Negative mg/dL (NEGATIVE) Urine Glucose (UA) Negative mg/dL (NEGATIVE) Urine Ketones Negative mg/dL (NEGATIVE) Urine Blood Negative (NEGATIVE) Urine Nitrite Negative (NEGATIVE) Urine Bilirubin Negative (NEGATIVE) Urine Urobilinogen Negative mg/dL (0.2-1.9) Urine Leukocyte Esterase Negative (NEGATIVE) Urine RBC <1 /HPF (0-2/HPF) Urine WBC 1 /HPF (0-5/HPF) Urine Squamous Epithelial Cells Few /LPF (</=FEW) Urine Bacteria Negative /HPF (NONE-FEW) Urine Mucus Few /HPF (NONE-FEW) EKG/Imaging Imaging PATIENT NAME: Mitesh Gambino : 1935 MR: [id number] V: [id number] EXAM DATE: ORDERING PHYSICIAN: TRICIA WILL TECHNOLOGIST: Location: [facility] - [place] Patient: Mitesh Gambino : 1935 Visit/Account:[id number] Date of Sevice: 01/23/2019 EXAMINATION: CT chest with IV contrast CT abdomen with IV contrast CT pelvis with IV contrast HISTORY: Infection, rash and fever. TECHNIQUE: Spiral scan was obtained through the chest, abdomen and pelvis during injection of nonionic iodinated intravenous contrast. Sagittal and c oronal reformatted images are also submitted. One of the following dose optimization techniques was utilized in the performance of this exam: Automated exposure control; adjustment of the mA and/or kV according to the patient's size; or use of an iterative reconstruction technique. Specific details can be referenced in the facility's radiology CT exam operational policy. CONTRAST: 75 mL of IV Isovue-370. COMPARISON: CT chest done earlier in the day. CT the abdomen pelvis on 01/24/2015. FINDINGS: CT THORAX: Lungs / pleura: Emphysematous changes. The basis do show fibrocalcific changes with chronic changes present. Mild scarring seen in the upper lobes as well. No focal consolidation, pleural effusion or pneumothorax. No discrete nodules. The airways are clear. Mediastinum / miracle: Multiple small mediastinal and hilar lymph nodes without enlarged lymph node. No abnormal density. Heart / pericardium: The heart is normal size without pericardial effusion. Very mild coronary artery calcifications. Vessels: The aorta shows mild atherosclerotic calcific changes without aneurysm or dissection. The pulmonary arteries are grossly normal. Musculoskeletal / Body wall: Bony structures show no acute fractures or aggressive bony lesions. Degenerative change seen in the spine and shoulders. Chest wall shows no enlarged axillary lymph nodes or masses. CT ABDOMEN AND PELVIS: Liver / biliary: The liver shows no focal abnormality. The vasculature appears to be patent. Gallbladder does show layering tiny gallstones without other focal abnormality. The biliary system is unremarkable. Pancreas: No focal abnormality. Spleen: Negative. Adrenal glands: Negative. Kidneys: Both kidneys show several parenchymal and peripelvic cysts. Largest on the right side measures 4 cm and the largest on left side measures 3.9 cm. No hydronephrosis or stones are seen in the urinary system. Pelvic structures: The prostate is enlarged and heterogeneous causing prominent impression to the urinary bladder. The urinary bladder is partially decompressed and does show some mild trabeculations and very small bilateral diverticula. These findings are likely due to at least mild outlet obstruction from the enlarged prostate. The urinary bladder shows no other focal abnormality. Bowel: Multiple diverticula along the sigmoid colon without pericolonic inflammation. The colon shows no other focal abnormality. The appendix is normal. The small bowel shows no focal abnormality or obstruction. The stomach shows a gastrostomy tube in place without other focal abnormality. Peritoneum / retroperitoneum / mesenteries: No free air, free fluid, fluid collections or areas of inflammation. Small umbilical hernia containing fat. Vessels: Mild atherosclerotic calcific changes seen in the aorta without aneurysm or dissection. Musculoskeletal / Body wall: Bony structures show no acute fractures or aggressive bony lesions. Degenerative change seen spine and both hips. The proximal left femur does show previous internal fixation without sequelae. Lymph node assessment: Negative. IMPRESSION: 1. The chest shows no acute abnormality. Chronic-type changes seen in the lungs. 2. No acute abnormality to the abdomen or pelvis. 3. Sigmoid diverticulosis without radiographic indication diverticulitis. 4. Other chronic findings as above. ED Course/Re-evaluation ED Course Patient is an 83-year-old male here with suspected sepsis likely secondary to respiratory infection in spite of a negative CTA yesterday. Patient has increased oxygen demand and was initially 84% on room air requiring 6 L mask, 4 L nasal cannula. Patient was given cefepime, vancomycin for empiric antimicrobial therapy, fluid boluses for resuscitation and blood cultures were collected prior to administration. Flu and C. difficile was negative yesterday. CT imaging of the chest abdomen pelvis showed no acute infectious process. I discussed the patient with Dr. Becerra who accepted the patient to his service. Patient was stable at time of admission. Decision to Disposition Date: Jan 23, 2019 Decision to Disposition Time: 15:59 Depart Departure Latest Vital Signs Vital Signs Date Time Temp Pulse Resp B/P (MAP) Pulse Ox O2 Delivery O2 Flow Rate FiO2 01/23/19 15:30 103 77/51 (60) 93 Oxy Mask 8 01/23/19 14:55 28 01/23/19 14:44 99.9 Impression: Primary Impression: Hypoxia Additional Impressions: Dyspnea Fever Condition: Improved Disposition: Admitted from ER Referrals: SHAY CORREIA MD (PCP) Problem Qualifiers TRICIA WILL DO Jan 23, 2019 14:00
[2019-01-23] MEDS ORDERED: CEFEPIME HCL 1 GM VIAL IVP ONE (14:10)
[2019-01-23] MEDS ORDERED: ACETAMINOPHEN 500 MG TAB PO ONE (14:10)
[2019-01-23] MEDS ORDERED: VANCOMYCIN 1 GM ADDVIAL 1 GM in NS(*) 0.9% 250 ML ADDVAN BAG 250 ML IVPB ONE (14:10)
[2019-01-23] MEDS ORDERED: NS(*) 0.9% 1000 ML BAG 1,000 ML IV ONE (14:10)
[2019-01-23 14:30] LABS: PLATELET COUNT, AUTOMATED 207 K/uL (150-450)
[2019-01-23 14:40] LABS: INR 2.34
[2019-01-23] MEDS ORDERED: VANCOMYCIN(*) 1 GM VIAL 2 GM in NS(*) 0.9% 500 ML BAG 500 ML IVPB ONE (14:45)
--- NOTE | 2019-01-23 15:44 | RADIOLOGY IMAGING REPORT ---
[place] [facility] [place]: Mitesh Gambino : 1935 MR: [id number] V: [id number] EXAM DATE: ORDERING PHYSICIAN: TRICIA WILL TECHNOLOGIST: Location: [facility] Patient: Mitesh Gambino : 1935 Visit/Account:[id number] Date of Sevice: 01/23/2019 EXAMINATION: CT chest with IV contrast CT abdomen with IV contrast CT pelvis with IV contrast HISTORY: Infection, rash and fever. TECHNIQUE: Spiral scan was obtained through the chest, abdomen and pelvis during injection of nonio migel iodinated intravenous contrast. Sagittal and coronal reformatted images are also submitted. One of the following dose optimization techniques was utilized in the performance of this exam: Autom ated exposure control; adjustment of the mA and/or kV according to the patient's size; or use of an i terative reconstruction technique. Specific details can be referenced in the facility's radiology C T exam operational policy. CONTRAST: 75 mL of IV Isovue-370. COMPARISON: CT chest done earlier in the day. CT the abdomen pelvis on 01/24/2015. FINDINGS: CT THORAX: Lungs / pleura: Emphysematous changes. The basis do show fibrocalcific changes with chronic changes present. Mild scarring seen in the upper lobes as well. No focal consolidation, pleural effusion or p neumothorax. No discrete nodules. The airways are clear. Mediastinum / miracle: Multiple small mediastinal and hilar lymph nodes without enlarged lymph node. No abnormal density. Heart / pericardium: The heart is normal size without pericardial effusion. Very mild coronary arter y calcifications. Vessels: The aorta shows mild atherosclerotic calcific changes without aneurysm or dissection. The p ulmonary arteries are grossly normal. Musculoskeletal / Body wall: Bony structures show no acute fractures or aggressive bony lesions. Deg enerative change seen in the spine and shoulders. Chest wall shows no enlarged axillary lymph nodes o r masses. CT ABDOMEN AND PELVIS: Liver / biliary: The liver shows no focal abnormality. The vasculature appears to be patent. Gallblad karlie does show layering tiny gallstones without other focal abnormality. The biliary system is unremar kable. Pancreas: No focal abnormality. Spleen: Negative. Adrenal glands: Negative. Kidneys: Both kidneys show several parenchymal and peripelvic cysts. Largest on the right side measur es 4 cm and the largest on left side measures 3.9 cm. No hydronephrosis or stones are seen in the uri nary system. Pelvic structures: The prostate is enlarged and heterogeneous causing prominent impression to the urinary bladder. The urinary bladder is partially decompressed and does show some mild trabeculations and very small bilateral diverticula. These findings are likely due to at least mild outlet obstruct ion from the enlarged prostate. The urinary bladder shows no other focal abnormality. Bowel: Multiple diverticula along the sigmoid colon without pericolonic inflammation. The colon shows no other focal abnormality. The appendix is normal. The small bowel shows no focal abnormality or ob struction. The stomach shows a gastrostomy tube in place without other focal abnormality. Peritoneum / retroperitoneum / mesenteries: No free air, free fluid, fluid collections or areas of in flammation. Small umbilical hernia containing fat. Vessels: Mild atherosclerotic calcific changes seen in the aorta without aneurysm or dissection. Musculoskeletal / Body wall: Bony structures show no acute fractures or aggressive bony lesions. Dege nerative change seen spine and both hips. The proximal left femur does show previous internal fixatio n without sequelae. Lymph node assessment: Negative. IMPRESSION: 1. The chest shows no acute abnormality. Chronic-type changes seen in the lungs. 2. No acute abnormality to the abdomen or pelvis. 3. Sigmoid diverticulosis without radiographic indication diverticulitis. 4. Other chronic findings as above. Report Dictated By: Robin Aponte at 01/23/2019 3:24 PM Report E-Signed By: Robin Aponte at 01/23/2019 3:39 PM WSN:[id number]
[2019-01-23 16:42] VITALS: BP 99/56
[2019-01-23] MEDS ORDERED: TOBDOO OD (17:20)
[2019-01-23] MEDS ORDERED: FLUT16SP19 NS (17:20)
[2019-01-23] MEDS ORDERED: TRAM-420 PO (17:20)
[2019-01-23] MEDS ORDERED: FLUO40CA67 PO (17:20)
[2019-01-23] MEDS ORDERED: GUAI-206 PO (17:20)
[2019-01-23] MEDS ORDERED: ALBUTEROL 2.5 MG/3 ML NEB NEB PRN (17:40)
[2019-01-23] MEDS ORDERED: ACETAMINOPHEN 500 MG TAB PO PRN (17:40)
[2019-01-23] MEDS ORDERED: GUAI600T57 PO (17:41)
--- NOTE | 2019-01-23 17:47 | History & Physical ---
History of Present Illness Chief Complaint Shortness of breath History of Present Illness This patient presented to the emergency room with complaints of shortness of breath. He was also seen in the emergency room last night for similar symptoms. His reports that he has been having increased difficulty since returning to the emergency room. He was requiring 10L of oxygen in the emergency department. 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 Home Meds Reported Medications Guaifenesin (MUCINEX) 600 Mg Tablet.er, 600 MG PO BID 01/23/19 Guaifenesin (GUAIFENESIN) 100 Mg/5 Ml Liquid, 15 ML PO PRN PRN for COUGH 01/23/19 Tramadol Hcl (TRAMADOL HCL) 50 Mg Tablet, 50 MG PO Q6H PRN for PAIN, TAB 01/23/19 Tobramycin/Dexamethasone (TOBRADEX EYE OINTMENT) 3.5 Gm Oint, 3.5 GM OD BID, TUBE 01/23/19 Fluoxetine Hcl (FLUOXETINE HCL) 40 Mg Capsule, 40 MG PO QDAY, CAPSULE 01/23/19 Fluticasone Prop 50 Mcg Ns (FLONASE 50 MCG NS) 16 Gm [place].susp, 2 SPRAYS NS QDAY, BOT 01/23/19 Cholecalciferol (Vitamin D3) (VITAMIN D3) 1,000 Unit Tablet, 2000 UNIT PO QDAY, TAB 01/02/18 Omeprazole (OMEPRAZOLE) 20 Mg Capsule.dr, 1 CAP PO QDAY, CAP 01/02/18 Warfarin Sodium (COUMADIN) 4 Mg Tablet, 8 MG PO Elaine,Mo,We,Fr,Sa 01/02/18 Warfarin Sodium (COUMADIN) 4 Mg Tablet, 10 MG PO tue,thur 01/02/18 Lactobacillus Acidophilus (ACIDOPHILUS) 1 Each Capsule, 1 EACH PO QDAY, CAPSULE 01/01/18 Carbamazepine (CARBAMAZEPINE) 200 Mg Tablet, 1 TAB PO BID 06/25/14 Discontinued Reported Medications Ondansetron Hcl (ZOFRAN) 4 Mg Tablet, 4 MG PO PRN, TAB 01/02/18 Ketotifen Fumarate (KETOTIFEN FUMARATE) 5 Ml Drops, 5 ML OP BID 01/02/18 Triamcinolone Acetonide 0.1% Oint 15 Gm Tube (TRIAMCINOLONE ACETONIDE 0.1% 15 GM TUBE) 15 Gm Oint...g., 15 GM TP PRN PRN for RASH, TUBE 01/02/18 Nystatin 100,000 Unit/Gm Top Powder (NYSTATIN 100,000 UNIT/GM TOP POWDER) 15 Gm Powder, 15 GM TP PRN, TUBE 01/02/18 Multivitamin (MULTIVITAMINS) 1 Each Capsule, 1 EACH PO QDAY, CAPSULE 01/02/18 Guaifenesin (MUCINEX) 600 Mg Tablet.er, 600 MG PO BID 01/02/18 Polyethylene Glycol 3350 (MIRALAX) 17 Gm Powd.pack, 17 GM PO QDAY PRN for CONSTIPATION, PKT 01/02/18 Fluoxetine Hcl (FLUOXETINE HCL) 20 Mg Capsule, 40 MG PO QDAY, CAPSULE 01/02/18 Acetaminophen (TYLENOL) 325 Mg Tablet, 500-1000 MG PO Q6H for PAIN, TAB 01/02/18 Metoprolol Succinate (METOPROLOL SUCCINATE) 25 Mg Tab.er.24h, 12.5 TAB PO DAILY, #30 01/13/15 Atorvastatin Calcium (Lipitor) 20 Mg Tablet, 10 MG PO QHS, #0 0 Refills 05/17/07 Discontinued Scripts Prednisone 10 Mg Tab (PREDNISONE 10 MG TAB) 10 Mg Tablet, 10 MG PO QDAY, #12 TAB Take 2 tablets daily for 4 days, then take 1 tablet daily for four days. Prov:ANTOINETTE GARCIA [employer] PARTNER MANAGER 01/09/18 Allergies: Coded Allergies: piperacillin (Verified Allergy, Severe, rash with blisters on back, stomach, and arms, 01/23/19) tazobactam (Verified Allergy, Severe, rash with blisters on back, stomach, and arms, 01/23/19) metronidazole (Unverified Allergy, Intermediate, RASH, 01/23/19) Itching, patient turns bright red all over body lactase (Unverified Allergy, Mild, DIARRHEA, 01/23/19) hydrocodone (Verified Allergy, Unknown, 01/23/19) oxycodone (Verified Allergy, Unknown, 01/23/19) milk (Verified Adverse Reaction, Intermediate, DIARRHEA, 01/23/19) Patient History: Cholelithiasis CHILD FH: Alzheimers disease BROTHER OR SISTER FH: pancreatic cancer FATHER FHx: heart failure MOTHER Hx Smoking: No Smoking Status: Never Smoker Exposure to Second Hand Smoke?: No Caffeine Intake: Coffee Caffeine/Cups Per Day: 4/DAY, TEA: 8 CUPS Hx Alcohol Use: No Hx Substance Use Disorder: No Review of Systems All Systems Reviewed/Normal: Yes, Except as Noted Constitutional: Fever Respiratory: Shortness of Breath Exam Vital Signs Vital Signs Date Time Temp Pulse Resp B/P (MAP) Pulse Ox O2 Delivery O2 Flow Rate FiO2 01/23/19 16:50 93 Oxy Mask 10.0 01/23/19 16:42 98.5 92 18 99/56 (70) Cardiovascular: Regular Rate and Rhythm Respiratory: Clear to Auscultation GI: Abd Soft and Non-Tender Extremities: No Edema Integumentary: No Cyanosis Medical Decision Making Data Points Result Diagram: 01/23/19 1420 01/23/19 1420 Assessment and Plan Problems: (1) Acute bronchitis Assessment & Plan: He has had two CT scans in the last 24hrs, which have been negative for pneumonia. He receiving cefepime and vancomycin in the emergency department. We have placed him on doxycycline and scheduled nebulizer treatments. (2) MS (multiple sclerosis) Status: Chronic Assessment & Plan: He does reside at the [facility]. (3) Atrial fibrillation Status: Resolved Assessment & Plan: He is on chronic treatment with warfarin. 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 Copies to: SHAY CORREIA MD ; Venous Thromboembolism Antithrombotics Is Pt On Any Antithrombotics?: Yes Exam Sepsis Risk: No Definite Risk JULIA PATEL DO Jan 23, 2019 17:47
[2019-01-23] MEDS ORDERED: GUAIFENESIN PO PRN (17:50)
[2019-01-23] MEDS ORDERED: traMADol 50 MG TAB PO PRN (17:50)
[2019-01-23] MEDS: ALBUTEROL 2.5 MG/3 ML NEB NEB SCH (18:06)
[2019-01-23] MEDS ORDERED: WARFARIN SOD 5 MG TAB PO SCH (18:15)
[2019-01-23] MEDS ORDERED: TOBROD OU (18:18)
[2019-01-23 19:16] VITALS: BP 90/59
[2019-01-23] MEDS ORDERED: guaiFENesin 600 MG TABCR PO SCH (21:00)
[2019-01-23] MEDS: DOXYCYCLINE HYCL 100 MG VIAL 100 MG in NS(*) 0.9% 250 ML BAG 250 ML IV SCH (21:40)
[2019-01-23] MEDS: TOBRAMYCIN/DEX OP SUSP 2.5 ML OU SCH (21:40)
[2019-01-23] MEDS: carBAMazepine 200 MG TAB PO SCH (21:40)
[2019-01-23] MEDS ORDERED: NS(*) 0.9% 250 ML BAG 250 ML ONE (21:42)
[2019-01-23 23:22] VITALS: BP 107/60
[2019-01-24 02:26] VITALS: BP 110/55
[2019-01-24] MEDS: ALBUTEROL 2.5 MG/3 ML NEB NEB SCH ×3 (05:36→17:39)
[2019-01-24 05:51] LABS: INR 2.78
[2019-01-24 07:08] VITALS: BP 120/59
[2019-01-24] MEDS ORDERED: PANTOPRAZOLE SOD 20 MG TABEC PO SCH (09:00)
[2019-01-24 10:21] VITALS: BMI 25.6
[2019-01-24] MEDS: DOXYCYCLINE HYCL 100 MG VIAL 100 MG in NS(*) 0.9% 250 ML BAG 250 ML IV SCH ×2 (10:29→20:26)
[2019-01-24] MEDS: FLUTICASONE PROP 0.05% 16 GM SCH (10:32)
[2019-01-24] MEDS: TOBRAMYCIN/DEX OP SUSP 2.5 ML OU SCH ×2 (10:33→20:25)
[2019-01-24] MEDS: LACTOBACILLUS ACIDOPHILUS TAB PO SCH (10:40)
[2019-01-24] MEDS: CHOLECALCIFEROL 1000 UNIT TAB PO SCH (10:40)
[2019-01-24] MEDS: FLUoxetine HCL 20 MG CAP PO SCH (10:41)
[2019-01-24] MEDS: carBAMazepine 200 MG TAB PO SCH ×2 (10:41→20:24)
[2019-01-24 10:49] VITALS: BP 109/61
[2019-01-24] MEDS ORDERED: RANITIDINE 150 MG/10 ML UDC PO SCH (11:00)
[2019-01-24] MEDS: [UNRECOGNIZED DRUG - OTHER] INH SCH ×2 (11:46→17:39)
--- NOTE | 2019-01-24 11:46 | Hospitalist Progress Note ---
Subjective Progress Notes Subjective 83M admitted for hypoxia. ZHEN overnight, has had some fluctuation in O2 needs. Patient Complains of: Respiratory: Cough Physical Exam Vital Signs Date Time Temp Pulse Resp B/P (MAP) Pulse Ox O2 Delivery O2 Flow Rate FiO2 01/24/19 11:17 99 18 01/24/19 11:10 90 Oxy Mask 4.0 01/24/19 07:08 98.2 120/59 (79) Intake and Output 01/24/19 07:00 Intake Total 1560 ml Output Total 325 ml Balance 1235 ml Intake IV Total 1500 ml Tube Irrigant 60 ml Output Urine Total 325 ml # Voids 3 General Appearance: No Acute Distress, Afebrile Neuro: No Gross deficits Cardiovascular: Normal Rhythm & Peripheral Pulses Respiratory: Other (coarse breath sounds) GI: Soft and Non-Tender Extremities: Soft and Non Tender, Warm, Pulses, Perfused Integumentary: Other (diffuse blanching fine rash.) Result Diagram: 01/23/19 1420 01/23/19 1420 Assessment and Plan Problems: (1) Acute bronchitis Assessment & Plan: He has had two CT scans in the last 24hrs, which have been negative for pneumonia. He receiving cefepime and vancomycin in the emergency department. We have placed him on doxycycline and scheduled nebulizer treatments. (2) MS (multiple sclerosis) Status: Chronic Assessment & Plan: He does reside at the [facility]. Chronic aspiration with PEG tube. Believe aspiration is root cause of respiratory difficulties. (3) Atrial fibrillation Status: Resolved Assessment & Plan: He is on chronic treatment with warfarin. 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 Exam Sepsis Risk: No Definite Risk TOLBERT SAHARA MURGUIA DO Jan 24, 2019 11:46
[2019-01-24] MEDS: RANITIDINE 150 MG/10 ML UDC PO SCH ×2 (13:59→20:25)
[2019-01-24] MEDS ORDERED: WARFARIN SOD 4 MG TAB PO SCH (14:00)
[2019-01-24 15:39] VITALS: Ht 182.9 cm; Wt 85.7 kg
[2019-01-24 15:40] VITALS: BP 113/55
--- NOTE | 2019-01-24 15:42 | Medical Nutrition Therapy ---
Nutrition Anthropometrics Height (Inches): 72.00 Height (Calculated Centimeters: 182.880062 Weight (Pounds): 189 Weight (Calculated Kilograms): 85.984 BMI: 25.7 Lake Nutrition Score: Adequate Lake Nutrition Risk Score: 15 Dietary Referral Nutrition Risk Factors: Unplanned Loss >10lbs Nutrition Risk Comment: Physical Findings Physical Appearance: Overweight BMI 25-29 Skin Appearance Skin Appearance: Edema Edema Location Modifier: Edema Location: Type of Edema: Degree of Edema: Gastrointestinal Symptoms GI Symtoms: Tube Present: Bowel Sounds: Recent Bowel Pattern: Stool Characteristics: Nutritional Diagnosis Nutritional Risk Acuity 2: Tube Feed Stable, Swallowing Problem Nutritional Risk Acuity 3: Fair Appetite Nutritional Risk Acuity 4: Modified Diet Past Medical History: MS, dysphagia per SPL 06/25/2014 hyperlipidemia, a-fib, PEG Nutritional Acuity: 2-Moderate Nutrition Diagnosis: Inablility to Feed Self Nutrition Etiology: Physiological Causes Nutrition Problem/Etiology/Sym: Inability to feed selfcare related to physiological causes as evidenced by swallowing issues and tube feeding stable. Energy Requirement: 8 (MSJ, 1.1 TEF, 1.2 AF) Protein Requirement: 86 (1 g AA/kg of BW) Fluid Requirement: 8 (1 ml/kcal) Diet Type: Tube Feeding (TF) Nutrition Intervention: Cont diet as ordered Drug: Warfarin Do Not Serve Any of the Follow: Broccoli, Brussel Sprouts, Spinach, [place] Lettuce, Cranberry Juice Diet Comment To RSA: Pt is on a tube feeding diet-Jevity 1.2 @ 150cc/hr x 10 hours at night. With current TF diet pt is receiving 90% of kcal needs and 96% of protein needs. PT IS ALLERGIC TO MILK Nutritional Support Current Enteral / Parental: Tube Feeding Tube Feeding Formulas: Specialty Formula (Jevity 1.2 @ 150cc/hr x 10 hours at night) Current Tube Feeding Formula C: Jevity 1.2 @ 150cc/hr x 10 hours at night Current Duration: 10 Current Feeding Comment: At night Current Calories: 1879 Current Protein: 83 Current Lipids Calories: 531 Total Current Calories: 1879 Nutrition Monitoring & Eval Nutrition Monitoring: Continue tube feeding diet-Jevity 1.2 @ 150cc/hr x 10 hours at night. With current TF diet pt is receiving 90% of kcal needs and 96% of protein needs. RD Patient Assessment Time: [address] Assessment Type: RD Assessment Patient Nutrition Acuity: 2-Moderate Follow Up Date: Jan 26, 2019 Nutritional Comment: 01/24: Pt admitted for acute bronchitis, MS, a-fib, and PEG. Pt hx of MS, dysphagia per SPL 06/25/2014, hyperlipidemia, a-fib, PEG. Pt has elevated BUN (33) and RBG (148) levels and decreased lipase (21). Pt is currently taking warfarin. Pt is on a tube feeding diet-Jevity 1.2 @ 150cc/hr x 10 hours at night. With current TF diet pt is receiving 90% of kcal needs and 96% of protein needs. Continue to monitor. -BJORN BRAGA Jan 24, 2019 10:25
[2019-01-24] MEDS: CETIRIZINE HCL 10 MG TAB PO SCH (16:43)
[2019-01-24 19:20] VITALS: BP 108/59
[2019-01-25] MEDS: [UNRECOGNIZED DRUG - OTHER] INH SCH ×3 (05:34→17:47)
[2019-01-25] MEDS: ALBUTEROL 2.5 MG/3 ML NEB NEB SCH ×3 (05:34→17:47)
[2019-01-25 06:24] LABS: INR 3.34
[2019-01-25 07:10] VITALS: BP 112/64
[2019-01-25] MEDS ORDERED: methylPREDNIS SUCC 125 MG/2ML IVP ONE (08:00)
--- NOTE | 2019-01-25 08:31 | NUR ---
Physical Therapy Impression PT/OT eval complete. Pt on 6L O2 at rest, coughing up much phlegm while in bed. PT increased O2 to 10L in order to maintain SpO2 WNL during mobility. Min-ModA for supine <>sit bed mobility. [place] x1 for STS transfer with EZ lift. It appears that pt is near baseline level of functional mobility therefore no further PT visits are planned at this time. Rec that pt mobilize with EZ lift and RN assistance during inpatient stay. Physical Therapy Goals Patient's Goals
--- NOTE | 2019-01-25 08:42 | RADIOLOGY IMAGING REPORT ---
FACILITY: [facility] - [place], [place] PATIENT NAME: Mitesh Gambino : 1935 MR: [id number] V: [id number] EXAM DATE: ORDERING PHYSICIAN: MICHELL MARIE TECHNOLOGIST: Location: [facility] Patient: Mitesh Gambino : 1935 Visit/Account:[id number] Date of Sevice: 01/25/2019 Single view of the chest Indication: Hypoxia. Comparison: X-ray examination of the chest January 23, 2019, CT examinations same date Findings: Heart size within normal limits. Ongoing perihilar linear opacities with more confluent consolidation in the left subpleural and right medial lung base. Findings are slightly progressive as compared to the previous x-ray examination. No effusion or pneumothorax. IMPRESSION: 1. Compared to prior examinations, redemonstration of perihilar and left subpleural linear type scarr ing. There appears to be more confluent regions of right perihilar consolidation concerning for super imposed infectious or inflammatory process. Report Dictated By: Francisco Etienne MD at 01/25/2019 8:35 AM Report E-Signed By: Francisco Etienne MD at 01/25/2019 8:37 AM WSN:[id number]
[2019-01-25] MEDS: CHOLECALCIFEROL 1000 UNIT TAB PO SCH (08:49)
[2019-01-25] MEDS: LACTOBACILLUS ACIDOPHILUS TAB PO SCH (08:49)
[2019-01-25] MEDS: CETIRIZINE HCL 10 MG TAB PO SCH (08:49)
[2019-01-25] MEDS: carBAMazepine 200 MG TAB PO SCH ×2 (08:50→20:47)
[2019-01-25] MEDS: FLUTICASONE PROP 0.05% 16 GM SCH (08:50)
[2019-01-25] MEDS: FLUoxetine HCL 20 MG CAP PO SCH (08:51)
[2019-01-25] MEDS: RANITIDINE 150 MG/10 ML UDC PO SCH ×2 (08:51→20:47)
[2019-01-25] MEDS: TOBRAMYCIN/DEX OP SUSP 2.5 ML OU SCH ×2 (08:51→20:47)
[2019-01-25] MEDS: DOXYCYCLINE HYCL 100 MG VIAL 100 MG in NS(*) 0.9% 250 ML BAG 250 ML IV SCH ×2 (08:54→20:48)
--- NOTE | 2019-01-25 10:27 | Hospitalist Progress Note ---
Subjective Progress Notes Subjective He denies cp/sob. He has no complaints. Staff reported that he is coughing up a lot of phlegm. No residuals on TF 3 hours after it was stopped. Physical Exam Vital Signs Date Time Temp Pulse Resp B/P (MAP) Pulse Ox O2 Delivery O2 Flow Rate FiO2 01/25/19 07:10 98.0 20 112/64 (80) 92 Oxy Mask 7.0 01/25/19 05:35 92 Intake and Output 01/25/19 07:00 Intake Total 3775 ml Output Total 650 ml Balance 3125 ml Intake IV Total 280 ml Tube Feeding 1794 ml Tube Irrigant 1701 ml Output Urine Total 650 ml # Voids 1 # Bowel Movements 2 General Appearance: Alert, Awake, No Acute Distress Neuro: Other (Knows where he is and why he is here. Knows the month.) Cardiovascular: Regular Rate and Rhythm Respiratory: Other (Exp wheezes anteriorly bilaterally) Extremities: No Edema Result Diagram: 01/23/19 1420 01/23/19 142 Assessment and Plan Problems: (1) Pneumonia Status: Acute Assessment & Plan: He presented with hypoxia, fevers and a rash. His initial CTA of the chest and then a repeat Chest CT didn't show infiltrate. He was started on doxycycline for bronchitis concern. His O2 requirement has remained high. He continues to have low grade fevers and a lot of mucus production. A repeat CXR, today, showed more confluent regions in the right perihilar consolidation worrisome for pneumonia. Will add Rocephin. Also, because of expiratory wheezes will give a one time dose of methylprednisolone. (2) MS (multiple sclerosis) Status: Chronic Assessment & Plan: He does reside at the [facility]. Chronic aspiration with PEG tube. Certainly, aspiration could be the main concern or at least contributing to the respiratory difficulties. (3) Atrial fibrillation Status: Resolved Assessment & Plan: He is on chronic treatment with warfarin. INR 3.34. Will decrease warfarin to 8mg a day. 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 Exam Sepsis Risk: No Definite Risk MICHELL MARIE MD Jan 25, 2019 10:27
[2019-01-25] MEDS ORDERED: cefTRIAXone 2 GM VIAL IVP SCH (13:00)
[2019-01-25] MEDS ORDERED: WARFARIN SOD 4 MG TAB PO SCH (13:00)
--- NOTE | 2019-01-25 13:35 | Antimicrobial Stewardship ---
Antimicrobial Time Out Antimicrobial Stewardship MD Service: Hospitalist Indications: CAP Antimicrobial Used Doxycycline 100 mg IVPB started on 01/23 for acute bronchitis. Rocephin 2 gm IVP added on 01/25 due to worsening chest x-ray suggesting pneumonia. Start Date: Jan 23, 2019 Culture Results: Yes (Sputum shows normal respiratory mary; blood cultures negative after 2 days.) BETO CASAS Jan 25, 2019 13:35
[2019-01-25 14:27] VITALS: BP 115/59
--- NOTE | 2019-01-25 15:26 | NUR ---
Occupational Therapy Impression Min-Mod Ax1 bed mobility. Min Ax1 sit<>stand with EZ lift. Pt requiring 6L O2 at rest and 10L O2 with mobility to maintain SpO2 WNL via OxyMask. Pt declined toileting at this time. Pt near baseline for functional mobility. Recommend EZ lift for mobility with nursing at this time. No further skilled OT needs indicated at this time. Rec return to [facility] when medically appropriate. Occupational Therapy Goals Patient's Goal
[2019-01-25] MEDS ORDERED: INFLUENZA VIRUS VAC 0.5ML SYR IM ONLY ONE (17:40)
[2019-01-25 19:35] VITALS: BP 101/52
[2019-01-26] MEDS: ALBUTEROL 2.5 MG/3 ML NEB NEB SCH ×2 (05:33→11:34)
[2019-01-26] MEDS: [UNRECOGNIZED DRUG - OTHER] INH SCH ×2 (05:34→11:34)
[2019-01-26 05:50] LABS: PLATELET COUNT, AUTOMATED 188 K/uL (150-450)
[2019-01-26 05:55] LABS: INR 3.67
[2019-01-26 07:51] VITALS: BP 100/60
[2019-01-26] MEDS: LACTOBACILLUS ACIDOPHILUS TAB PO SCH (08:58)
[2019-01-26] MEDS: RANITIDINE 150 MG/10 ML UDC PO SCH (08:58)
[2019-01-26] MEDS: FLUoxetine HCL 20 MG CAP PO SCH (08:58)
[2019-01-26] MEDS: carBAMazepine 200 MG TAB PO SCH (08:58)
[2019-01-26] MEDS: CHOLECALCIFEROL 1000 UNIT TAB PO SCH (08:58)
[2019-01-26] MEDS: CETIRIZINE HCL 10 MG TAB PO SCH (08:58)
[2019-01-26] MEDS: TOBRAMYCIN/DEX OP SUSP 2.5 ML OU SCH (08:59)
[2019-01-26] MEDS: FLUTICASONE PROP 0.05% 16 GM SCH (08:59)
[2019-01-26] MEDS: DOXYCYCLINE HYCL 100 MG VIAL 100 MG in NS(*) 0.9% 250 ML BAG 250 ML IV SCH (08:59)
[2019-01-26] MEDS ORDERED: ACETAMINOPHEN 500 MG TAB FT PRN (09:50)
[2019-01-26] MEDS: CLINDAMYCIN 150 MG CAP FT SCH ×2 (10:40→15:22)
--- NOTE | 2019-01-26 10:55 | Medical Nutrition Therapy ---
Nutrition Anthropometrics Height (Inches): 72.00 Height (Calculated Centimeters: 182.887976 Weight (Pounds): 189 Weight (Calculated Kilograms): 85.984 BMI: 25.7 Lake Nutrition Score: Adequate [place] Nutrition Risk Score: 14 Dietary Referral Nutrition Risk Factors: Unplanned Loss >10lbs Nutrition Risk Comment: Physical Findings Physical Appearance: Overweight BMI 25-29 Skin Appearance Skin Appearance: Edema Edema Location Modifier: Edema Location: Type of Edema: Degree of Edema: Gastrointestinal Symptoms GI Symtoms: Change in Bowel Pattern Tube Present: PEG Bowel Sounds: Recent Bowel Pattern: Stool Characteristics: Nutritional Diagnosis Nutritional Risk Acuity 2: Tube Feed Stable, Swallowing Problem Nutritional Risk Acuity 3: Fair Appetite Nutritional Risk Acuity 4: Modified Diet Past Medical History: MS, dysphagia per SPL 06/25/2014 hyperlipidemia, a-fib, PEG Nutritional Acuity: 2-Moderate Nutrition Diagnosis: Inablility to Feed Self Nutrition Etiology: Physiological Causes Nutrition Problem/Etiology/Sym: Inability to feed selfcare related to physiological causes as evidenced by swallowing issues and tube feeding stable. Energy Requirement: 8 (MSJ, 1.1 TEF, 1.2 AF) Protein Requirement: 86 (1 g AA/kg of BW) Fluid Requirement: 2088 (1 ml/kcal) Diet Type: Tube Feeding (TF) Nutrition Intervention: Cont diet as ordered Drug: Warfarin Do Not Serve Any of the Follow: Broccoli, Brussel Sprouts, Spinach, [place] Lettuce, Cranberry Juice Diet Comment To RSA: PT IS ALLERGIC TO MILK Nutritional Support Current Enteral / Parental: Tube Feeding Tube Feeding Formulas: Jevity 1cal/ml-Standard Current Tube Feeding Formula C: Jevity 1.0 @ 150cc/hr x 10 hours at night Current Duration: 10 Current Feeding Comment: At night Current Calories: 1662 Current Protein: 66 Current Lipids Calories: 469 Total Current Calories: 1662 Recommended Enteral / Parental: Tube Feeding Recommended Tube Feeding Formu: Jevity 1cal/ml-Standard Recommended Tube Feeding Formu: Jevity 1.0 @ 150cc/hr x 12 hours at night Recommended Duration: 12 Recommended Calories: 1908 Recommended Protein: 80 Total Recommended Calories: 1908 Nutrition Monitoring & Eval RD Patient Assessment Time: [address] Assessment Type: RD Re-Assessment Patient Nutrition Acuity: 2-Moderate Follow Up Date: Jan 29, 2019 Nutritional Comment: 01/24: Pt admitted for acute bronchitis, MS, a-fib, and PEG. Pt hx of MS, dysphagia per SPL 06/25/2014, hyperlipidemia, a-fib, PEG. Pt has elevated BUN (33) and RBG (148) levels and decreased lipase (21). Pt is currently taking warfarin. Pt is on a tube feeding diet-Jevity 1.2 @ 150cc/hr x 10 hours at night. With current TF diet pt is receiving 90% of kcal needs and 96% of protein needs. Continue to monitor. -LIMA 01/26: Pt is coughing up phlem. Pt has elevated BUN (23), c-reactive protein (7.6), b-natriuretic peptide (152), and decreased calcium (8.2) and lipase (21). Pt is on a tube feeding diet-Jevity 1.0 @ 150cc/hr x 10 hours at night. With current TF diet pt is receiving 80% of kcal needs and 77% of protein needs. Would recommend TF diet of Jevity 1.0 @ 150cc/hr x 12 hours at night to meet 91% of kcal needs and 93% protein needs. Continue to monitor. -BJORN BRAGA Jan 26, 2019 09:18
[2019-01-26] MEDS ORDERED: CLIN-75 FT (12:26)
--- NOTE | 2019-01-26 12:32 | Hospitalist Depart ---
Discharge Summary Reason for Hosp/Final Diag: (1) Pneumonia Status: Acute Hospital Course & Plan: He presented with hypoxia, fevers and a rash. His initial CTA of the chest and then a repeat Chest CT didn't show infiltrate. He was started on doxycycline for bronchitis concern. His O2 requirement has remained high. He continues to have low grade fevers and a lot of mucus production. A repeat CXR, today, showed more confluent regions in the right perihilar consolidation worrisome for pneumonia. Treated with clindamycin for aspiration pneumonia. Suspect he continues to aspirate. (2) MS (multiple sclerosis) Status: Chronic Hospital Course & Plan: He does reside at the [facility]. Chronic aspiration with PEG tube. Certainly, aspiration could be the main concern or at least contributing to the respiratory difficulties. (3) Atrial fibrillation Status: Resolved Hospital Course & Plan: He is on chronic treatment with warfarin. INR 3.34. Decrease dose to 6mg while completing course of antibiotics then resume home dose. 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 Departure Weight (Pounds): 189 Weight (Ounces): 9.0 Result Diagram: 01/26/1951301/26/19513 Condition: Improved Discharge: Jail Discharge Instructions Home Meds Active Scripts Clindamycin Hcl (CLINDAMYCIN HCL) 150 Mg Capsule, 450 MG FT TID for 10 Days, #90 CAPSULE Prov:SAHARA LEYVA DO 01/26/19 Reported Medications Tobramycin/Dexamethasone (TOBRADEX EYE DROPS) 5 Ml Susp, 5 ML OU BID 01/23/19 Guaifenesin (MUCINEX) 600 Mg Tablet.er, 600 MG PO BID 01/23/19 Fluoxetine Hcl (FLUOXETINE HCL) 40 Mg Capsule, 40 MG PO QDAY, CAPSULE 01/23/19 Fluticasone Prop 50 Mcg Ns (FLONASE 50 MCG NS) 16 Gm [place].susp, 2 SPRAYS NS QDAY, BOT 01/23/19 Cholecalciferol (Vitamin D3) (VITAMIN D3) 1,000 Unit Tablet, 2000 UNIT PO QDAY, TAB 01/02/18 Omeprazole (OMEPRAZOLE) 20 Mg Capsule.dr, 1 CAP PO QDAY, CAP 01/02/18 Warfarin Sodium (COUMADIN) 4 Mg Tablet, 8 MG PO Elaine,Mo,We,Fr,Sa 01/02/18 Warfarin Sodium (COUMADIN) 4 Mg Tablet, 10 MG PO tue,thur 01/02/18 Lactobacillus Acidophilus (ACIDOPHILUS) 1 Each Capsule, 1 EACH PO QDAY, CAPSULE 01/01/18 Carbamazepine (CARBAMAZEPINE) 200 Mg Tablet, 1 TAB PO BID 06/25/14 Discontinued Reported Medications Guaifenesin (GUAIFENESIN) 100 Mg/5 Ml Liquid, 15 ML PO PRN PRN for COUGH 01/23/19 Tramadol Hcl (TRAMADOL HCL) 50 Mg Tablet, 50 MG PO Q6H PRN for PAIN, TAB 01/23/19 Tobramycin/Dexamethasone (TOBRADEX EYE OINTMENT) 3.5 Gm Oint, 3.5 GM OD BID, TUBE 01/23/19 Ondansetron Hcl (ZOFRAN) 4 Mg Tablet, 4 MG PO PRN, TAB 01/02/18 Ketotifen Fumarate (KETOTIFEN FUMARATE) 5 Ml Drops, 5 ML OP BID 01/02/18 Triamcinolone Acetonide 0.1% Oint 15 Gm Tube (TRIAMCINOLONE ACETONIDE 0.1% 15 GM TUBE) 15 Gm Oint...g., 15 GM TP PRN PRN for RASH, TUBE 01/02/18 Nystatin 100,000 Unit/Gm Top Powder (NYSTATIN 100,000 UNIT/GM TOP POWDER) 15 Gm Powder, 15 GM TP PRN, TUBE 01/02/18 Multivitamin (MULTIVITAMINS) 1 Each Capsule, 1 EACH PO QDAY, CAPSULE 01/02/18 Guaifenesin (MUCINEX) 600 Mg Tablet.er, 600 MG PO BID 01/02/18 Polyethylene Glycol 3350 (MIRALAX) 17 Gm Powd.pack, 17 GM PO QDAY PRN for CONSTIPATION, PKT 01/02/18 Fluoxetine Hcl (FLUOXETINE HCL) 20 Mg Capsule, 40 MG PO QDAY, CAPSULE 01/02/18 Acetaminophen (TYLENOL) 325 Mg Tablet, 500-1000 MG PO Q6H for PAIN, TAB 01/02/18 Metoprolol Succinate (METOPROLOL SUCCINATE) 25 Mg Tab.er.24h, 12.5 TAB PO DAILY, #30 01/13/15 Atorvastatin Calcium (Lipitor) 20 Mg Tablet, 10 MG PO QHS, #0 0 Refills 05/17/07 Discontinued Scripts Prednisone 10 Mg Tab (PREDNISONE 10 MG TAB) 10 Mg Tablet, 10 MG PO QDAY, #12 TAB Take 2 tablets daily for 4 days, then take 1 tablet daily for four days. Prov:JOSEANTOINETTE TONNAGE COMPILATION CLERK 01/09/18 Activity: As Tolerated Special Instructions: Tube-feeding diet, aspiration risk Begin clindamycin 450mg TID for 10 days secondary to aspiration pneumonia. Decrease warfarin dose to 6mg daily while taking the antibiotic (10 days) then increase dose back to home levels. Venous Thromboembolism Antithrombotics Is Pt On Any Antithrombotics?: Yes SAHARA LEYVA DO Jan 26, 2019 12:32
[2019-01-26] MEDS ORDERED: WARFARIN SOD 4 MG TAB FT SCH (13:00)
[2019-01-26] MEDS ORDERED: RANITIDINE 150 MG/10 ML UDC FT SCH (21:00)
[2019-01-26] MEDS ORDERED: carBAMazepine 200 MG TAB FT SCH (21:00)
[2019-01-27] MEDS ORDERED: FLUoxetine HCL 20 MG CAP FT SCH (09:00)
[2019-01-27] MEDS ORDERED: CETIRIZINE HCL 10 MG TAB FT SCH (09:00)
[2019-01-27] MEDS ORDERED: LACTOBACILLUS ACIDOPHILUS TAB FT SCH (09:00)
[2019-01-27] MEDS ORDERED: WARFARIN SOD 6 MG TAB FT SCH (13:00)
== END 2019-01-26 15:35 | DRG 179 ==
LOC: ER 14:23 → MED 16:06
PROVIDERS: ADMIT Family Medicine; ATTEND Family Medicine
DX: J69.0 Pneumonitis due to inhalation of food and vomit (principal); G35 Multiple sclerosis; I48.2 Chronic atrial fibrillation; R09.02 Hypoxemia; Z96.89 Presence of other specified functional implants; Z88.0 Allergy status to penicillin; Z88.5 Allergy status to narcotic agent; Z88.8 Allergy status to other drugs, medicaments and biological substances; Z79.01 Long term (current) use of anticoagulants
CPT/HCPCS: 36415; 71045; 71260; 71275; 74177; 81001; 82040; 82247; 82310; 82374; 82435; 82565; 82947; 83605; 83690; 83880; 84075; 84132; 84155; 84295; 84450; 84460; 84484; 84520; 85025; 85610; 85730; 86140; 87040; 87070; 87088; 87186; 87205; 87502; 93005; 94640; 96365; 96375; 97161; 97166; 99284; A9270; J0692; J0696; J2930; J3370; J3490; J7030; J7040; J7050; J7613; Q9967